=== PATIENT | female | born 1945 | race Caucasian/White ===

== ENCOUNTER 2019-09-24 09:11 | Inpatient (IN) | payer OTHER ==
[~2019-09-24] VITALS: Ht 162.6 cm; Wt 98.6 kg
[2019-09-24 09:11] VITALS: BP_SYST 114
--- NOTE | 2019-09-24 09:11 | NUR ---
BROUGHT BACK TO BED #6 VIA WHEELCHAIR, TRIAGED. REPORT GIVEN TO LUIS
--- NOTE | 2019-09-24 09:20 | NUR ---
pt arrives from home via BLS w/ c/o SOB since this am. pt was recently dc'd from [facility] where she was told that hse had a "minor heart attack. Pt placed on 2l NC. Will reassess.
--- NOTE | 2019-09-24 09:20 | NUR ---
pt arrives from home via WC w/ c/o SOB since this am. pt was recently dc'd from [facility] where she was told that hse had a "minor heart attack. Pt placed on 2l NC. Will reassess.
--- NOTE | 2019-09-24 09:30 | NUR ---
# 20 gauge angiocath placed to LAC. Use of asceptic technique. Opsite placed over site. Blood return noted. Blood for lab drawn from site. Flushed with 10 cc of normal saline. No evidence of infiltration noted. Patient tolerated well.
--- NOTE | 2019-09-24 09:32 | NUR ---
ER at bedside examining patient.
--- NOTE | 2019-09-24 09:40 | NUR ---
pt is currrently getting a CXR at the bedside.
[2019-09-24 09:52] LABS: BASOPHILS # (AUTO) 0.1 K/uL (0.0-0.2); BASOPHILS % (AUTO) 0.9 % (0.0-2.0); EOSINOPHILS # (AUTO) 0.1 K/uL (0.0-0.4); EOSINOPHILS % (AUTO) 0.9 % (0.0-4.0); HEMATOCRIT 40.2 % (36-48); HEMOGLOBIN 13.1 g/dL (12.0-16.0); LYMPHOCYTES # (AUTO) 1.3 K/uL (1.0-5.5); LYMPHOCYTES % (AUTO) 14.2 % (20.5-51.5); MEAN CORPUSCULAR HEMOGLOBIN 28 pg (27-31); MEAN CORPUSCULAR HGB CONC 33 % (32-36); MEAN CORPUSCULAR VOLUME 88 fL (79.0-98.0); MONOCYTES # (AUTO) 0.6 K/uL (0.0-1.0); MONOCYTES % (AUTO) 6.5 % (1.7-9.3); NEUTROPHILS # (AUTO) 7.3 K/uL (1.8-7.7); NEUTROPHILS % (AUTO) 77.5 % (40.0-70.0); PLATELET COUNT (AUTO) 357 K/uL (130-430); RED CELL DISTRIBUTION WIDTH 14.8 % (9.0-15.0); WHITE BLOOD COUNT (AUTO) 9.4 K/uL (4.8-10.8)
[2019-09-24] MEDS ORDERED: LevALBUTEROL HCL 1.25 MG/0.5 ML *CONC.* VIAL.NEB (XOPENEX CONC.) INH ONE ×2 (09:59→10:00)
[2019-09-24 10:01] LABS: ANION GAP 8 (5-15); CALCIUM 8.4 mg/dL (8.4-11.0); CHLORIDE 102 mmol/L (98-107); CREATININE 1.05 mg/dL (0.55-1.30); GLUCOSE 135 mg/dL (70-99); POTASSIUM 3.4 mmol/L (3.5-5.1); SODIUM SERUM 138 mmol/L (136-145); UREA NITROGEN, BLOOD 10 mg/dL (8-21)
[2019-09-24 10:14] LABS: ALANINE AMINOTRANSFERASE 24 U/L (12-78); ASPARTATE AMINOTRANSFERASE 7 U/L (10-37); TOTAL BILIRUBIN 0.9 mg/dL (0.0-1.0)
[2019-09-24] MEDS ORDERED: FUROSEMIDE 40 MG/4 ML VIAL IVP ONE (11:00)
[2019-09-24] MEDS ORDERED: ASPIRIN 81 MG TAB.CHEW PO ONE (11:00)
--- NOTE | 2019-09-24 11:00 | NUR ---
pt will be admitted under the care of Dr. Bradley. Orders received.
--- NOTE | 2019-09-24 11:10 | NUR ---
medicated the pt w/ LAsix IVP and Aspirin PO per MD order.
--- NOTE | 2019-09-24 11:22 | NUR ---
unable to do med rec. Pt does not know w/ medications she is on. Daughter to bring home.
--- NOTE | 2019-09-24 11:30 | NUR ---
Patient will be admitted to care of Dr. Bradley. Admitted to tele unit. Will go to room 101-a. Belongings list completed. Summary report printed. Bedside report given to Gillian KING. IV on the LAC 22g, patent and flushing well.
--- NOTE | 2019-09-24 11:35 | NUR ---
Cardiac consult called: for Dr. Gaitan, regarding CHF, ordered by Dr. Bradley, spoke with Mila.
--- NOTE | 2019-09-24 11:40 | NUR ---
ADMISSION NOTE Received patient from ER via gurney. Patient admitted with diagnosis of SOB. Patient is awake, alert, oriented X 3. Patient oriented to hospital room, call light, toileting, pain management and safety-teach back done. Patient informed that HAIDER will be HER nurse and that their room number is 101A. Personal belongings checked and Belongings List documented. Call light within reach.
[2019-09-24] MEDS ORDERED: ALBUTEROL SULFATE 0.083% 2.5 MG/3 ML VIAL.NEB INH PRN (11:45)
[2019-09-24] MEDS ORDERED: IPRATROPIUM BROM 0.5 MG/2.5 ML VIAL.NEB (ATROVENT) INH PRN (11:45)
[2019-09-24] MEDS ORDERED: AZITHROMYCIN 500 MG in NS 250 ML IV SCH (12:00)
--- NOTE | 2019-09-24 12:15 | NUR ---
INITIAL ASSESSMENT: PATIENT HAVING ECHOCARDIOGRAM AT THE BEDSIDE. VITAL SIGNS TAKEN,AFEBRILE. PATIENT DENIES ANY CHEST PAIN.LEFT AC IV SALINE LOCK.ON FIELD CASE MANAGER. SINUS RHYTHM WITH PVC'S.ASYMPTOMATIC. Addendum: 09/24/19 at 1443 by Shawna Ling RN WITH O2 2L/NC,GOOD SATURATION.
[2019-09-24 12:20] VITALS: BP_SYST 93
[2019-09-24 12:48] VITALS: BP_SYST 93
[2019-09-24] MEDS: ALBUTEROL SULFATE 0.083% 2.5 MG/3 ML VIAL.NEB INH SCH ×2 (13:37→19:30)
[2019-09-24] MEDS: IPRATROPIUM BROM 0.5 MG/2.5 ML VIAL.NEB (ATROVENT) INH SCH ×2 (13:37→19:29)
[2019-09-24] MEDS ORDERED: methylPREDNISolone SOD SUCC/PF 62.5 MG/ML VIAL IVP SCH (14:00)
[2019-09-24 14:06] VITALS: BP_SYST 93
[2019-09-24] MEDS: cefTRIAXone 1 GM in D5W 50 ML IV SCH (14:27)
[2019-09-24] MEDS: AZITHROMYCIN 500 MG in NS 250 ML IV SCH (14:28)
--- NOTE | 2019-09-24 14:40 | NUR ---
RN ROUNDS: PATIENT SLEEPING DURING ROUNDS. NOT IN ANY RESPIRATORY DISTRESS.
--- NOTE | 2019-09-24 16:14 | NUR ---
RN ROUNDS: RESTING. DENIES ANY CHEST PAIN. NO ACUTE DISTRESS.
[2019-09-24 16:36] VITALS: BP_SYST 90
--- NOTE | 2019-09-24 17:15 | NUR ---
IV NOTES: PATIENT PULLED OUT IV BY ACCIDENT. RE SITED AT LEFT HAND USING G#22,IV ANTIBIOTIC GIVEN.NO PROBLEM.
--- NOTE | 2019-09-24 17:33 | NUR ---
pulmo consult called: for Dr. Newton, regarding COPD, ordered by Dr. Bradley, spoke with Naomie. Dr. Mandujano documentation spec.
[2019-09-24 17:41] LABS: INR 1.1 (0.8-1.2); PROTHROMBIN TIME 11.1 SECS (9.5-12.5)
[2019-09-24] MEDS ORDERED: WARFARIN SODIUM 1 MG TABLET PO SCH (18:00)
--- NOTE | 2019-09-24 18:33 | NUR ---
CLOSING NOTES: PATIENT ON HIGH ZENG'S POSITION.DAUGHTER AT THE BEDSIDE. ON O2 2L/NC,GOOD SATURATION. NO ACUTE DISTRESS. CALL LIGHT WITH IN REACH. BED LOCKED AT LOWEST POSITION. CONDITION GUARDED.
--- NOTE | 2019-09-24 19:35 | NUR ---
OPENING NOTES Patient is resting, HOB elevated, family at bedside. No signs of acute respiratory distress, 2L NC. Call light within reach, bed alarm refused after educating patient on risks and benefits and patient verbalizes understanding. Will continue to monitor.
--- NOTE | 2019-09-24 19:44 | NUR ---
SPOKE TO DR. HOPSON, RECEIVED NEW ORDERS FOR RESTORIL 15 MG PO ONE TIME, Will hold Lasix per Dr. Hopson for low Blood pressure and hold Coreg if still in 90's BP.
--- NOTE | 2019-09-24 19:47 | NUR ---
PAGE PAGED DOCTOR HOPSON FOR ORDERS.
[2019-09-24 20:00] VITALS: BP_SYST 104
[2019-09-24] MEDS ORDERED: TEMAZEPAM 15 MG CAPSULE PO ONE (20:00)
--- NOTE | 2019-09-24 20:14 | NUR ---
Patient is resting, no signs of acute respiratory distress, 2L NC. Will continue to monitor.
[2019-09-24] MEDS: CARVEDILOL 6.25 MG TABLET (COREG) PO SCH (21:00)
[2019-09-24] MEDS: FUROSEMIDE 40 MG/4 ML VIAL IVP SCH (21:00)
[2019-09-24] MEDS ORDERED: FUROSEMIDE 40 MG/4 ML VIAL IVP SCH (21:00)
--- NOTE | 2019-09-24 22:10 | NUR ---
Provided patient with restoril. Educated patient on possible side effects and use of call light. Patient verbalized understanding. Safety precautions in place along with bed alarm. Will continue to monitor.
--- NOTE | 2019-09-25 00:14 | NUR ---
Assisted patient with blankets. No signs of acute respiratory distress. 2L NC. Will continue to monitor.
[2019-09-25 00:33] VITALS: BP_SYST 119
[2019-09-25] MEDS: ALBUTEROL SULFATE 0.083% 2.5 MG/3 ML VIAL.NEB INH SCH ×4 (01:00→15:00)
[2019-09-25] MEDS: IPRATROPIUM BROM 0.5 MG/2.5 ML VIAL.NEB (ATROVENT) INH SCH ×4 (01:00→15:00)
--- NOTE | 2019-09-25 02:13 | NUR ---
Patient is asleep, no change in condition. Will continue to monitor.
--- NOTE | 2019-09-25 04:15 | NUR ---
Patient is resting, eyes closed. No SOB observed. Safety precautions in place. Will continue to monitor.
[2019-09-25 06:07] LABS: INR 1.1 (0.8-1.2); PROTHROMBIN TIME 11.2 SECS (9.5-12.5)
[2019-09-25 06:40] LABS: BASOPHILS % (AUTO) 0.1 % (0.0-2.0); HEMATOCRIT 34.9 % (36-48); HEMOGLOBIN 11.7 g/dL (12.0-16.0); LYMPHOCYTES # (AUTO) 0.7 K/uL (1.0-5.5); LYMPHOCYTES % (AUTO) 9.9 % (20.5-51.5); MEAN CORPUSCULAR HEMOGLOBIN 29 pg (27-31); MEAN CORPUSCULAR HGB CONC 33 % (32-36); MEAN CORPUSCULAR VOLUME 87 fL (79.0-98.0); MONOCYTES # (AUTO) 0.1 K/uL (0.0-1.0); MONOCYTES % (AUTO) 1.7 % (1.7-9.3); NEUTROPHILS # (AUTO) 6.5 K/uL (1.8-7.7); NEUTROPHILS % (AUTO) 88.3 % (40.0-70.0); PLATELET COUNT (AUTO) 306 K/uL (130-430); RED BLOOD CELL COUNT(AUTO) 4.04 MIL/uL (4.2-6.2); RED CELL DISTRIBUTION WIDTH 14.4 % (9.0-15.0); WHITE BLOOD COUNT (AUTO) 7.4 K/uL (4.8-10.8)
--- NOTE | 2019-09-25 06:54 | NUR ---
CLOSING NOTES Patient is resting, eyes closed. No signs of acute respiratory distress, 2L NC. HOB elevated. Patient refused bed alarm after patient education provided and patient verbalizes understanding. All needs met throughout shift. Bed at lowest position, call light within reach. Will endorse care to oncoming shift.
[2019-09-25 07:05] LABS: ALANINE AMINOTRANSFERASE 10 U/L (12-78); ALBUMIN 2.5 g/dL (3.4-4.8); ANION GAP 8 (5-15); ASPARTATE AMINOTRANSFERASE 15 U/L (10-37); CALCIUM 8.3 mg/dL (8.4-11.0); CHLORIDE 100 mmol/L (98-107); GLUCOSE 157 mg/dL (70-99); POTASSIUM 3.8 mmol/L (3.5-5.1); SODIUM SERUM 134 mmol/L (136-145); THYROID STIMULATING HORMONE 3.23 uIu/mL (0.36-3.74); TOTAL BILIRUBIN 0.3 mg/dL (0.0-1.0); UREA NITROGEN, BLOOD 14 mg/dL (8-21)
[2019-09-25 07:49] VITALS: BP_SYST 125
--- NOTE | 2019-09-25 08:00 | NUR ---
Note Pt sitting up in bed eating her breakfast, no SOB/resp distress or pain/discomfort noted at this time. Tele unit attached and intact at this time. IV in left hand fallen off. New IV to be inserted at this time. No needs noted. Pt had her breathing treatment and now has O2 at 2l/nc on. Call light within reach.
[2019-09-25] MEDS: ASPIRIN 81 MG TAB.CHEW PO SCH (08:30)
[2019-09-25] MEDS: FLUoxetine HCL 10 MG CAPSULE (PROzac) PO SCH (08:30)
[2019-09-25] MEDS: SPIRONOLACTONE 25 MG TABLET (ALDACTONE) PO SCH (08:31)
[2019-09-25] MEDS: ATORVASTATIN 20 MG TABLET PO SCH (08:31)
[2019-09-25] MEDS: CLOPIDOGREL BISULFATE 75 MG TABLET PO SCH (08:31)
[2019-09-25] MEDS: AMIODARONE HCL 200 MG TABLET PO SCH (08:31)
[2019-09-25] MEDS: FUROSEMIDE 40 MG/4 ML VIAL IVP SCH ×2 (08:32→20:34)
[2019-09-25] MEDS: CARVEDILOL 6.25 MG TABLET (COREG) PO SCH ×2 (08:38→20:34)
[2019-09-25] MEDS ORDERED: WARFARIN SODIUM 3 MG TABLET PO ONE (08:45)
[2019-09-25] MEDS ORDERED: *LOVENOX 1MG/KG Q12H/PHARMACY XX PRN (09:30)
[2019-09-25] MEDS ORDERED: ENOXAPARIN SODIUM 100 MG/ML SYRINGE SUBCUT ONE (09:30)
--- NOTE | 2019-09-25 09:58 | NUR ---
Nutrition Update Ten Scale 18 noted. Pt admitted for CHF. Diet: cardiac BMI: 37.7 kg/m2 RD to follow per nutrition care standards.
--- NOTE | 2019-09-25 10:35 | NUR ---
Note Pt sitting up in bed resting. No SOB/resp distress or pain/discomfort noted at this time. Pt was seen and assessed by Dr Gaitan at bedside this am at 0915am. Orders written and carried out. Pt states she feels a lot better and rested than she has felt the last few months. She slept well last night, the first time in a very long time. No needs noted at this time. Call light within reach.
--- NOTE | 2019-09-25 12:08 | NUR ---
Dietitian Recommendations * Recommend cardiac, CCHO diet w/ Glucerna BID (ONS provides 440 kcal/day, 20 gm protein/day) * Snacks TID in-between meals LP, RD Please refer to Nutrition Assessment for details. Addendum: 09/25/19 at [address] Amended: Links added.
[2019-09-25] MEDS: cefTRIAXone 1 GM in D5W 50 ML IV SCH (12:11)
[2019-09-25 12:12] VITALS: BP_SYST 97
--- NOTE | 2019-09-25 12:30 | NUR ---
Note Pt sitting up in bed eating her lunch at this time. Denies any needs. Call light within reach.
[2019-09-25] MEDS: AZITHROMYCIN 500 MG in NS 250 ML IV SCH (13:12)
[2019-09-25 13:50] LABS: CHOLESTEROL 88 mg/dL (<200); HDL CHOLESTEROL 45 mg/dL (>55); LDL CHOLESTEROL 31 mg/dL (<100); TRIGLYCERIDES 78 mg/dL (30-150)
--- NOTE | 2019-09-25 16:00 | NUR ---
Note Pt ambulated to restroom to have bowel movement. Pt steady with standby assist at this time. No chest discomfort/pain noted all shift. No needs noted at this time. Call light within reach.
[2019-09-25 16:20] VITALS: BP_SYST 105
--- NOTE | 2019-09-25 18:15 | NUR ---
Note Pt sitting up in bed eating her dinner at this time. Pt was checked on q1' and PRN all shift for needs and care. No SOB/resp distress or chest pain/discomfort noted all shift. Tele unit intact and attached all shift. No needs noted. Pt has had BSC all shift - only used it occasionally. Ambulated to restroom - pt's preference. Call light within reach. Pt maintained with safety precautions all shift.
--- NOTE | 2019-09-25 19:20 | NUR ---
PM ASSESSMENT Pt in bed with eyes open resting comfortably. No signs of acute distress or discomfort noted. Pt on 2L O2 via NC, tolerating well with O2 sats @ 96% and even and unlabored breathing. Pt IV site patent and intact. Pt doesn't verbalize any needs at this time. Bed is locked and in lowest position, call light within reach, will cont to monitor pt.
[2019-09-25 20:00] VITALS: BP_SYST 118
[2019-09-25] MEDS: ENOXAPARIN SODIUM 100 MG/ML SYRINGE SUBCUT SCH (20:36)
--- NOTE | 2019-09-25 22:30 | NUR ---
Pt c/o headache at this time. Will page MD for orders. Will cont to monitor pt.
--- NOTE | 2019-09-25 22:43 | NUR ---
PAGE PAGED DOCTOR CROKCER
--- NOTE | 2019-09-25 23:07 | NUR ---
PAGED PAGED THE OPTICAL ENGINEERING MANAGER PHYSICIAN DR. CROCKER, SPOKE WITH ANA
--- NOTE | 2019-09-25 23:30 | NUR ---
PAGED PAGED DOCTOR CROCKER FOR 3RD TIME
[2019-09-26] VITALS: BP_SYST 116
--- NOTE | 2019-09-26 00:28 | NUR ---
Pt states that she is having a hard time breathing. Pt's v/s checked and let pt know that her oxygen saturation is 98% at this time. Pt states she would still like a breathing treatment. RT made aware and will administer breathing tx. Will cont to monitor pt.
--- NOTE | 2019-09-26 00:38 | NUR ---
4TH TIME PAGED DOCTOR CROCKER FOR ORDERS
--- NOTE | 2019-09-26 00:46 | NUR ---
MD MD Dr. Gregory called back and new orders received. Will carry out orders.
[2019-09-26] MEDS ORDERED: ACETAMINOPHEN 325 MG TABLET PO PRN (01:15)
[2019-09-26] MEDS: TEMAZEPAM 15 MG CAPSULE PO PRN ×2 (01:22→20:59)
[2019-09-26 04:00] VITALS: BP_SYST 123
--- NOTE | 2019-09-26 04:05 | NUR ---
Pt in bed with eyes closed resting comfortably. No signs of acute distress or discomfort noted. Bed is locked and in lowest position, call light within reach, will cont to monitor pt.
--- NOTE | 2019-09-26 05:54 | NUR ---
Pt resting in bed with eyes closed. No signs of acute distress or discomfort noted. Pt's daily weight checked at this time. Bed is locked and in lowest position, call light within reach, will cont to monitor.
[2019-09-26 07:18] LABS: BASOPHILS % (AUTO) 0.3 % (0.0-2.0); EOSINOPHILS % (AUTO) 0.2 % (0.0-4.0); HEMATOCRIT 36.1 % (36-48); HEMOGLOBIN 11.7 g/dL (12.0-16.0); LYMPHOCYTES % (AUTO) 14.7 % (20.5-51.5); MEAN CORPUSCULAR HEMOGLOBIN 28 pg (27-31); MEAN CORPUSCULAR HGB CONC 32 % (32-36); MEAN CORPUSCULAR VOLUME 87 fL (79.0-98.0); MONOCYTES # (AUTO) 0.7 K/uL (0.0-1.0); MONOCYTES % (AUTO) 5.6 % (1.7-9.3); NEUTROPHILS # (AUTO) 10.5 K/uL (1.8-7.7); PLATELET COUNT (AUTO) 311 K/uL (130-430); RED BLOOD CELL COUNT(AUTO) 4.14 MIL/uL (4.2-6.2); RED CELL DISTRIBUTION WIDTH 14.5 % (9.0-15.0); WHITE BLOOD COUNT (AUTO) 13.3 K/uL (4.8-10.8)
[2019-09-26 07:31] LABS: ALANINE AMINOTRANSFERASE 15 U/L (12-78); ALBUMIN 2.8 g/dL (3.4-4.8); ANION GAP 6 (5-15); ASPARTATE AMINOTRANSFERASE 12 U/L (10-37); CALCIUM 8.4 mg/dL (8.4-11.0); CHLORIDE 99 mmol/L (98-107); CREATININE 0.94 mg/dL (0.55-1.30); GLUCOSE 129 mg/dL (70-99); POTASSIUM 3.8 mmol/L (3.5-5.1); SODIUM SERUM 134 mmol/L (136-145); TOTAL BILIRUBIN 0.5 mg/dL (0.0-1.0); UREA NITROGEN, BLOOD 18 mg/dL (8-21)
--- NOTE | 2019-09-26 07:35 | NUR ---
ENDORSEMENT Report given to oncoming dayshift RN and pt care was endorsed. No signs of acute distress or discomfort noted.
[2019-09-26 08:00] VITALS: BP_SYST 109
--- NOTE | 2019-09-26 08:30 | NUR ---
RN INITIAL NOTES RECEIVED PATIENT IN BED ALERT X 4 NO DISTRESS RESP EVEN AND UNLABORED NO COMPLAIN OF PAIN AT THIS TIME PATIENT SAID SHE WANTS TO GO HOME IF THE DR COMES TO SEE HER , AM MEDS GIVEN HELD BP MEDS AND LASIX PATIENT HAS LOW BP READING, BP 109/54 98.6, 80, 18 97 %
[2019-09-26] MEDS: IPRATROPIUM BROM 0.5 MG/2.5 ML VIAL.NEB (ATROVENT) INH SCH ×3 (08:35→21:00)
[2019-09-26] MEDS: ALBUTEROL SULFATE 0.083% 2.5 MG/3 ML VIAL.NEB INH SCH ×3 (08:35→21:00)
[2019-09-26] MEDS: ATORVASTATIN 20 MG TABLET PO SCH (08:52)
[2019-09-26] MEDS: ASPIRIN 81 MG TAB.CHEW PO SCH (08:52)
[2019-09-26] MEDS: CLOPIDOGREL BISULFATE 75 MG TABLET PO SCH (08:52)
[2019-09-26] MEDS: AMIODARONE HCL 200 MG TABLET PO SCH (08:53)
[2019-09-26] MEDS: CARVEDILOL 6.25 MG TABLET (COREG) PO SCH ×2 (08:53→20:58)
[2019-09-26] MEDS: FLUoxetine HCL 10 MG CAPSULE (PROzac) PO SCH (08:59)
[2019-09-26] MEDS: SPIRONOLACTONE 25 MG TABLET (ALDACTONE) PO SCH (09:00)
[2019-09-26] MEDS: FUROSEMIDE 40 MG/4 ML VIAL IVP SCH ×2 (09:00→20:59)
[2019-09-26] MEDS: ENOXAPARIN SODIUM 100 MG/ML SYRINGE SUBCUT SCH ×2 (09:03→21:01)
[2019-09-26 09:38] LABS: INR 1.2 (0.8-1.2); PROTHROMBIN TIME 12.4 SECS (9.5-12.5)
--- NOTE | 2019-09-26 10:00 | NUR ---
DR CROCKER ROUNDS SET OFF PRESS OPERATOR FOR DR HOPSON PATIENT SEEN BY DR CROCKER DISCUSSED PLAN OF CARE AND PATIENT WILL HAVE LABS IN AM NO DC ORDER FOR TODAY
[2019-09-26 11:34] LABS: NEUTROPHILS % (AUTO) 79.2 % (40.0-70.0)
--- NOTE | 2019-09-26 12:00 | NUR ---
ROUNDS PATIENT VERBAL NO DISTRESS WATCHING TV NO COMPLAIN OF PAIN
[2019-09-26 12:37] VITALS: BP_SYST 106
[2019-09-26] MEDS: AZITHROMYCIN 500 MG in NS 250 ML IV SCH (15:08)
[2019-09-26] MEDS: cefTRIAXone 1 GM in D5W 50 ML IV SCH (15:52)
[2019-09-26 16:44] VITALS: BP_SYST 98
[2019-09-26] MEDS: WARFARIN SODIUM 4 MG TABLET PO SCH (18:46)
--- NOTE | 2019-09-26 18:59 | NUR ---
ENDORSEMENT WILL CONT PLAN OF CARE COUMADIN GIVEN NO COMPLAIN OF DISTRESS AND NO PAIN SAFETY ENSURED
[2019-09-26 20:00] VITALS: BP_SYST 109
--- NOTE | 2019-09-26 20:00 | NUR ---
AWAKE, ALERT, ORIENTED X3. IN NO APPARENT DISTRESS. VSS. DENIES PAIN. ON ROOM AIR. POX 95%. BREATH SOUNDS CLEAR. BOWEL SOUNDS (+). PULSES PALPABLE. SKIN W/D. COLOR SATISFACTORY. HOB UP TO COMFORT. SIDE RAILS UP. CALL. LIGHTS WITHIN REACH.
--- NOTE | 2019-09-26 21:00 | NUR ---
RESTORIL 15 MG PO GIVEN PER PT REQUEST FOR SLEEP.
[2019-09-27 00:05] VITALS: BP_SYST 109
--- NOTE | 2019-09-27 00:15 | NUR ---
TRANSFER OF CARE Received report from CHRISTINE Mao. Patient receive asleep, no signs of respiratory distress, and discomfort noted. BSC in place. Safety Precautions in place. Will continue to monitor.
--- NOTE | 2019-09-27 02:00 | NUR ---
RN ROUNDS Patient is asleep, no signs of respiratory distress and discomfort noted. Nasal cannula properly attached. Safety precautions in place. Will continue to monitor.
--- NOTE | 2019-09-27 03:48 | NUR ---
ROUNDS/REQUEST BREATHING TREATMENT Patient awake, alert and oriented. Requested for breathing treatment. RT made aware. Nasal cannula attached properly, no signs of respiratory distress and discomfort noted. HOB raised. Call light with patient, educated on proper use, patient verbalized understanding and demonstrated back proper use. Safety precautions in place. Will continue to monitor.
--- NOTE | 2019-09-27 05:28 | NUR ---
RN ROUNDS Patient asleep at this time. Breathing even and unlabored, no signs of respiratory distress and discomfort noted. Nasal cannula attached properly. HOB raised. Safety precautions in place. Will continue to monitor.
[2019-09-27 06:05] LABS: BASOPHILS % (AUTO) 0.4 % (0.0-2.0); EOSINOPHILS # (AUTO) 0.1 K/uL (0.0-0.4); EOSINOPHILS % (AUTO) 1.4 % (0.0-4.0); HEMATOCRIT 33.3 % (36-48); LYMPHOCYTES # (AUTO) 2.4 K/uL (1.0-5.5); LYMPHOCYTES % (AUTO) 28.3 % (20.5-51.5); MEAN CORPUSCULAR HEMOGLOBIN 29 pg (27-31); MEAN CORPUSCULAR HGB CONC 33 % (32-36); MEAN CORPUSCULAR VOLUME 87 fL (79.0-98.0); MONOCYTES # (AUTO) 0.6 K/uL (0.0-1.0); MONOCYTES % (AUTO) 6.8 % (1.7-9.3); NEUTROPHILS # (AUTO) 5.3 K/uL (1.8-7.7); NEUTROPHILS % (AUTO) 63.1 % (40.0-70.0); PLATELET COUNT (AUTO) 279 K/uL (130-430); RED BLOOD CELL COUNT(AUTO) 3.84 MIL/uL (4.2-6.2); RED CELL DISTRIBUTION WIDTH 14.7 % (9.0-15.0); WHITE BLOOD COUNT (AUTO) 8.4 K/uL (4.8-10.8)
[2019-09-27 06:23] LABS: ALANINE AMINOTRANSFERASE 16 U/L (12-78); ALBUMIN 2.5 g/dL (3.4-4.8); ANION GAP 5 (5-15); ASPARTATE AMINOTRANSFERASE 13 U/L (10-37); CALCIUM 7.9 mg/dL (8.4-11.0); CHLORIDE 98 mmol/L (98-107); CREATININE 0.89 mg/dL (0.55-1.30); GLUCOSE 105 mg/dL (70-99); POTASSIUM 3.4 mmol/L (3.5-5.1); SODIUM SERUM 133 mmol/L (136-145); TOTAL BILIRUBIN 0.4 mg/dL (0.0-1.0); UREA NITROGEN, BLOOD 16 mg/dL (8-21)
--- NOTE | 2019-09-27 06:25 | NUR ---
CLOSING NOTES Patient asleep at this time, breathing even and unlabored, no signs of respiratory distress. IV site patent, no signs of infection. Nasal cannula attached properly on 2L of oxygen. HOB raised. Bed alarm on. Bed locked and lowest position. All needs met throughout the shift. Will endorse to oncoming nurse for continuity of care. Will continue to monitor.
[2019-09-27] MEDS: IPRATROPIUM BROM 0.5 MG/2.5 ML VIAL.NEB (ATROVENT) INH SCH ×3 (07:00→20:01)
[2019-09-27] MEDS: ALBUTEROL SULFATE 0.083% 2.5 MG/3 ML VIAL.NEB INH SCH ×3 (07:00→20:01)
[2019-09-27] MEDS ORDERED: POTASSIUM CHLORIDE 20 MEQ TAB.PRT.SR PO ONE (07:15)
--- NOTE | 2019-09-27 08:00 | NUR ---
INITIAL RN NOTES RECEIVED PATIENT IN BED NOT IN ANY DISTRESS,RESP EVEN AND UNLABORED, NO FACIAL GRIMACE NOTED, PATIENT CONT WITH PLAN OF CARE , PATIENT WAS SEEN BY DR. CROCKER WITH ORDERS FOR LAB DRAW TODAY AND WILL CALL MD FOR RESULT.SAFETY ENSURED
[2019-09-27 08:03] LABS: INR 1.2 (0.8-1.2); PROTHROMBIN TIME 11.9 SECS (9.5-12.5)
[2019-09-27 08:30] VITALS: BP_SYST 90
[2019-09-27] MEDS: FUROSEMIDE 40 MG/4 ML VIAL IVP SCH ×2 (08:40→21:17)
[2019-09-27] MEDS: SPIRONOLACTONE 25 MG TABLET (ALDACTONE) PO SCH (08:41)
[2019-09-27] MEDS: CARVEDILOL 6.25 MG TABLET (COREG) PO SCH ×2 (08:41→21:19)
[2019-09-27] MEDS: AMIODARONE HCL 200 MG TABLET PO SCH (08:43)
[2019-09-27] MEDS: FLUoxetine HCL 10 MG CAPSULE (PROzac) PO SCH (08:46)
[2019-09-27] MEDS: CLOPIDOGREL BISULFATE 75 MG TABLET PO SCH (08:46)
[2019-09-27] MEDS: ASPIRIN 81 MG TAB.CHEW PO SCH (08:46)
[2019-09-27] MEDS: ATORVASTATIN 20 MG TABLET PO SCH (08:46)
[2019-09-27] MEDS: ENOXAPARIN SODIUM 100 MG/ML SYRINGE SUBCUT SCH ×2 (08:47→21:20)
--- NOTE | 2019-09-27 10:00 | NUR ---
ROUNDS PATIENT WOKE UP AND STATED SHE WAS TOLD YESTERDAY FOR DC TODAY BUT WAS TOLD NOT TO DC TODAY , INFORMED PATIENT LAB DRAW TODAY FOR PT . AND WILL WAIT FOR DR ADDISON TODAY ,D/T TO HER PT STILL NOT THERAPEUTIC
[2019-09-27 10:13] VITALS: BP_SYST 109
--- NOTE | 2019-09-27 11:51 | NUR ---
DR ADDISON VISIT PATIENT SEEN BY DR ADDISON EXPLAINED TO THE PATIENT HER PT STILL NOT THERAPEUTIC WILL GIVE COUMADIN AGAIN TODAY
[2019-09-27] MEDS ORDERED: METOLAZONE 5 MG TABLET PO ONE (12:00)
[2019-09-27] MEDS ORDERED: POTASSIUM CHLORIDE 20 MEQ/PKT PACKET PO ONE (12:00)
[2019-09-27 12:20] VITALS: BP_SYST 98
--- NOTE | 2019-09-27 12:35 | NUR ---
POTASSIUM DR ELIZALDE INFORMED THAT THIS AM DR CROCKER ORDERED FOR POTASSIUM AND MISSED THE TIME DR ADDISON SAID ITS OK TO GIVE THE NEXT DOSE ORDERED BY HIM AFTER 2PM INFORMED PATIENT
--- NOTE | 2019-09-27 14:00 | NUR ---
ROUNDS PATIENT SLEEPING AT THIS TIME WATCHING TV AND CONVERSANT NO C/O OF PAIN
[2019-09-27 16:00] VITALS: BP_SYST 111
--- NOTE | 2019-09-27 16:00 | NUR ---
PATIENT BREATHING TREATMENT PATIENT OFFERED FOR BREATHING TREATMENT 02 SAT 98% PATIENT STATED SHES ANXIOUS TO GO HOME WILL FOLLOW UP IN AM WILL CONT WITH IV ATB
[2019-09-27] MEDS: AZITHROMYCIN 500 MG in NS 250 ML IV SCH (16:45)
[2019-09-27] MEDS: cefTRIAXone 1 GM in D5W 50 ML IV SCH (16:50)
[2019-09-27] MEDS: WARFARIN SODIUM 4 MG TABLET PO SCH (18:06)
--- NOTE | 2019-09-27 18:30 | NUR ---
Paged Dr. Gregory s/w Any.
--- NOTE | 2019-09-27 18:32 | NUR ---
END RN NOTES PATIENT STATED THAT SHE FELT NAUSEATED AND DONT FEEL LIKE EATING OFFERED ICE CHIPS PATIENT SAID I DONT WANT TO EAT ANYTHING FOR NOW , CALLED DR CROCKER FOR THE NAUSEA INFORMED PATIENT TO ASSUME POSITION THAT WILL MAKE HER COMFORTABLE O2 SAT IS 98% BP 111/72, AWAITING FOR DR CROCKER RETURN CALL
--- NOTE | 2019-09-27 20:00 | NUR ---
INITIAL NOTES: PT IS ALERT AND ORIENTED , NOT IN ANY ACUTE DISTRESS; VITALS ARE STABLE ; ON O2 2L NC SAT 96 % ; ASSESSMENT DONE ; DENIED ANY SOB OR CHEST DISCOMFORT AT THIS TIME ; PT USES BSC , ENCOURAGED PT TO CALL FOR ASSIST ; PT REFUSED BED ALARM ; BED IN LOW AND LOCK POSITION , CALL HARKINS IN REACH ; WILL CONTINUE TO MONITOR PT ; TELE MONITOR SHOWING SR WITH [facility]
[2019-09-27 21:10] VITALS: BP_SYST 109
--- NOTE | 2019-09-27 21:20 | NUR ---
MEDICATION DUE MEDS GIVEN ; PT IS COMFORTABLE ; WILL CONTINUE TO MONITOR PT Addendum: 09/28/19 at 0121 by Orlin Diaz RN EDUCATED PT ON LASIX WITH MEDICATION FACT SHEET , NO QUESTIONS AT THIS TIME
[2019-09-27] MEDS: TEMAZEPAM 15 MG CAPSULE PO PRN (23:01)
--- NOTE | 2019-09-27 23:05 | NUR ---
RESTORIL: PT CALLED AND ASKED FOR SLEEPING PILL , MEDICATED PT WITH RESTORIL PER ORDER , EDUCATED PT THE NEED FOR BED ALARM , PT REFUSED AT THIS TIME ; ENCOURAGED PT TO CALL FOR ASSIST .
[2019-09-28] VITALS: BP_SYST 93
--- NOTE | 2019-09-28 01:23 | NUR ---
RN ROUNDS: PT IS SLEEPING COMFORTABLY , NOT IN ANY ACUTE DISTRESS; RESPIRATION IS EVEN AND NON LABORED ; WILL CONTINUE TO MONITOR PT .
--- NOTE | 2019-09-28 03:40 | NUR ---
RN ROUNDS: PT IS SLEEPING COMFORTABLY , NOT IN ANY ACUTE DISTRESS; RESPIRATION IS EVEN AND NON LABORED ; WILL CONTINUE TO MONITOR PT .
--- NOTE | 2019-09-28 05:21 | NUR ---
RN ROUNDS: PT IS SLEEPING COMFORTABLY , NOT IN ANY ACUTE DISTRESS; RESPIRATION IS EVEN AND NON LABORED ; WILL CONTINUE TO MONITOR PT .
--- NOTE | 2019-09-28 07:20 | NUR ---
CLOSING NOTES: REPORT GIVEN TO RN AT BEDSIDE ; PT IS STILL SLEEPING , EASILY AROUSABLE ; ALL NEEDS ATTENDED .
[2019-09-28] MEDS: ALBUTEROL SULFATE 0.083% 2.5 MG/3 ML VIAL.NEB INH SCH (07:25)
[2019-09-28] MEDS: IPRATROPIUM BROM 0.5 MG/2.5 ML VIAL.NEB (ATROVENT) INH SCH (07:25)
[2019-09-28 08:00] VITALS: BP_SYST 98
--- NOTE | 2019-09-28 08:05 | NUR ---
INITIAL NOTE: RECEIVED PT FROM LANDSCAPE ENGINEER NURSE. PT IS AWAKE LAYING IN BED EATING BREAKFAST. PT TOLERATING CURRENT DIET. PT ON 1L NC, NO DISTRESS NOTED, RISE AND FALL OF CHEST PRESENT. NO C/O PAIN AT THIS TIME. SAFETY PRECAUTIONS: BED LOCKED IN LOWEST POSITION, ALARM ON, CALL LIGHT WITHIN REACH. WILL CONTINUE PLAN OF CARE.
[2019-09-28 08:06] LABS: INR 1.4 (0.8-1.2); PROTHROMBIN TIME 14.3 SECS (9.5-12.5)
[2019-09-28 08:14] LABS: ALANINE AMINOTRANSFERASE 20 U/L (12-78); ALBUMIN 2.7 g/dL (3.4-4.8); ANION GAP 5 (5-15); ASPARTATE AMINOTRANSFERASE 16 U/L (10-37); CALCIUM 8.4 mg/dL (8.4-11.0); CHLORIDE 98 mmol/L (98-107); CREATININE 0.88 mg/dL (0.55-1.30); GLUCOSE 98 mg/dL (70-99); POTASSIUM 3.4 mmol/L (3.5-5.1); SODIUM SERUM 137 mmol/L (136-145); TOTAL BILIRUBIN 0.4 mg/dL (0.0-1.0); UREA NITROGEN, BLOOD 13 mg/dL (8-21)
[2019-09-28] MEDS: ENOXAPARIN SODIUM 100 MG/ML SYRINGE SUBCUT SCH (08:49)
[2019-09-28] MEDS: FUROSEMIDE 40 MG/4 ML VIAL IVP SCH (08:49)
[2019-09-28] MEDS: ATORVASTATIN 20 MG TABLET PO SCH (08:50)
[2019-09-28] MEDS: FLUoxetine HCL 10 MG CAPSULE (PROzac) PO SCH (08:50)
[2019-09-28] MEDS: SPIRONOLACTONE 25 MG TABLET (ALDACTONE) PO SCH (08:51)
[2019-09-28] MEDS: AMIODARONE HCL 200 MG TABLET PO SCH (08:51)
[2019-09-28] MEDS: ASPIRIN 81 MG TAB.CHEW PO SCH (08:53)
[2019-09-28] MEDS: CLOPIDOGREL BISULFATE 75 MG TABLET PO SCH (08:53)
[2019-09-28] MEDS: CARVEDILOL 6.25 MG TABLET (COREG) PO SCH (08:54)
--- NOTE | 2019-09-28 09:30 | NUR ---
Ambulate in the hallway with front wheel walker in Mara air, Pt 02 sat is 97% after walking. Denies any Dizziness and shortness of breath.
[2019-09-28 09:52] LABS: INR 1.4 (0.8-1.2); PROTHROMBIN TIME 14.3 SECS (9.5-12.5)
--- NOTE | 2019-09-28 10:30 | NUR ---
Pt has a discharge order, but Dr. magallanes wants to know patient's home medications. Informed patient's that she can't leave yet until she gets the list of her home medications. pt verbalize understanding.
--- NOTE | 2019-09-28 10:47 | NUR ---
Pt still trying to call her daughter to get the home medications.
--- NOTE | 2019-09-28 11:00 | NUR ---
notes- Seen by Dr. Newton at bedside.
--- NOTE | 2019-09-28 11:27 | NUR ---
PT IS LAYING IN BED COMFORTABLY. NO C/O PAIN AT THIS TIME. NO RESPIRATORY DISTRESS NOTED. PT AWAITING DAUGHTER TO BRING MEDICATION LIST, PENDING DC.
[2019-09-28 12:00] VITALS: BP_SYST 96
--- NOTE | 2019-09-28 12:28 | NUR ---
spoke to Dixie HCP case making machine operator and made aware of home DME, Patient can go home now and they just gonna deliver the nebulizer at home.
--- NOTE | 2019-09-28 13:04 | NUR ---
Notes- Per patient, she is unable to provide her home medication list, she lives with her roomate. The room mate is here at this time and he is unable to find her medication at home. The daughter has work and patient really wants to go home now.
[2019-09-28 13:15] VITALS: BP_SYST 96
--- NOTE | 2019-09-28 13:20 | NUR ---
Called and made follow up appointment for Dr. Bunn clinic on October 01. at 2pm. Make patient aware, and to bring prescription from the hospital. Pt is unable to provide her home medications at this time.
[2019-09-28] MEDS ORDERED: FURO-149 PO (13:21)
[2019-09-28] MEDS ORDERED: SPIR25TA PO (13:22)
[2019-09-28] MEDS ORDERED: AMIO200T4 PO (13:22)
[2019-09-28] MEDS ORDERED: CARV6.2554 PO (13:23)
[2019-09-28] MEDS ORDERED: WARF4TAB2 PO (13:27)
--- NOTE | 2019-09-28 13:57 | NUR ---
Discharge patient home accompanied by her friend/roomate. Denies any chest pain or shortness of breath. O2 sat at 96% in andrew air. pt is very anxious to go home. Discharge instruction and prescription given and discussed with patient. discussed Follow up appointment on at 2pm. pt verbalize understanding. Arm Band IVL removed.
[2019-09-28] MEDS ORDERED: FUROSEMIDE 40 MG TABLET PO SCH (21:00)
--- NOTE | 2019-10-01 16:31 | NUR ---
DISCHARGE FOLLOW UP PHONE CALL JONE/ PALOMA CARTER PHONED PATIENT, . PATIENT STATED SHE IS FEELING BETTER. SHE UNDERSTOOD HER DISCHARGE INSTRUCTIONS. ALREADY FILLED HER PRESCRIPTION AND FOLLOWED UP WITH HER PCP. HAS NO QUESTIONS OR CONCERNS.
== END 2019-09-28 14:00 | disposition home or self-care (01) | DRG 291 ==
LOC: SED 09:11 → STU 11:10
PROVIDERS: ADMIT Internal Medicine Hospice and Palliative Medicine; ATTEND Internal Medicine Hospice and Palliative Medicine
DX: I11.0 Hypertensive heart disease with heart failure (principal); J96.90 Respiratory failure, unspecified, unspecified whether with hypoxia or hypercapnia; E87.1 Hypo-osmolality and hyponatremia; J44.1 Chronic obstructive pulmonary disease with (acute) exacerbation; E46 Unspecified protein-calorie malnutrition; I48.0 Paroxysmal atrial fibrillation; F17.210 Nicotine dependence, cigarettes, uncomplicated; I25.10 Atherosclerotic heart disease of native coronary artery without angina pectoris; I25.5 Ischemic cardiomyopathy; I50.41 Acute combined systolic (congestive) and diastolic (congestive) heart failure; Z96.651 Presence of right artificial knee joint; E66.9 Obesity, unspecified; F32.9 Major depressive disorder, single episode, unspecified; I51.3 Intracardiac thrombosis, not elsewhere classified; M17.12 Unilateral primary osteoarthritis, left knee; Z79.01 Long term (current) use of anticoagulants; Z91.14 Patient's other noncompliance with medication regimen; Z91.19 Patient's noncompliance with other medical treatment and regimen; Z95.5 Presence of coronary angioplasty implant and graft; I25.2 Old myocardial infarction; Z99.81 Dependence on supplemental oxygen; Z68.37 Body mass index [BMI] 37.0-37.9, adult
CPT/HCPCS: 36415; 36600; 71045; 80053; 80061; 82550-TC; 82803-TC; 83880; 84443-TC; 84484; 85025; 85610-TC; 87081; 93005; 93306; 94640; 94760; 96374; 96375; 99291; G0378; J0456; J0696; J1650; J1940; J2930; J7050; J7060; J7612; J7613

== ENCOUNTER 2019-10-28 16:43 | Inpatient (IN) | payer OTHER ==
[~2019-10-28] VITALS: Ht 165.1 cm; Wt 98.2 kg
[2019-10-28 16:43] VITALS: BP_SYST 140
[~2019-10-28 16:43] MED LIST: AMIO200T4 PO; CARV6.2554 PO; FURO-149 PO; SPIR25TA PO; WARF4TAB2 PO
[2019-10-28] MEDS ORDERED: FUROSEMIDE 40 MG/4 ML VIAL IVP ONE (17:15)
[2019-10-28] MEDS ORDERED: IPRATROPIUM/ALBUTEROL SULFATE 3 ML AMPUL.NEB (DUONEB) INH ONE (17:15)
[2019-10-28 17:27] LABS: BASOPHILS # (AUTO) 0.1 K/uL (0.0-0.2); BASOPHILS % (AUTO) 1.6 % (0.0-2.0); EOSINOPHILS # (AUTO) 0.1 K/uL (0.0-0.4); EOSINOPHILS % (AUTO) 0.8 % (0.0-4.0); HEMATOCRIT 36.2 % (36-48); HEMOGLOBIN 12.2 g/dL (12.0-16.0); LYMPHOCYTES # (AUTO) 1.7 K/uL (1.0-5.5); LYMPHOCYTES % (AUTO) 20.9 % (20.5-51.5); MEAN CORPUSCULAR HEMOGLOBIN 28 pg (27-31); MEAN CORPUSCULAR HGB CONC 34 % (32-36); MEAN CORPUSCULAR VOLUME 84 fL (79.0-98.0); MONOCYTES # (AUTO) 0.3 K/uL (0.0-1.0); MONOCYTES % (AUTO) 3.9 % (1.7-9.3); NEUTROPHILS # (AUTO) 5.9 K/uL (1.8-7.7); NEUTROPHILS % (AUTO) 72.8 % (40.0-70.0); PLATELET COUNT (AUTO) 430 K/uL (130-430); RED BLOOD CELL COUNT(AUTO) 4.33 MIL/uL (4.2-6.2); RED CELL DISTRIBUTION WIDTH 15.7 % (9.0-15.0); WHITE BLOOD COUNT (AUTO) 8.1 K/uL (4.8-10.8)
[2019-10-28 18:00] LABS: ANION GAP 8 (5-15); CHLORIDE 92 mmol/L (98-107); CREATININE 0.91 mg/dL (0.55-1.30); GLUCOSE 141 mg/dL (70-99); SODIUM SERUM 129 mmol/L (136-145); UREA NITROGEN, BLOOD 8 mg/dL (8-21)
[2019-10-28 18:04] LABS: ALANINE AMINOTRANSFERASE 18 U/L (12-78); ALBUMIN 3.1 g/dL (3.4-4.8); ASPARTATE AMINOTRANSFERASE 9 U/L (10-37); TOTAL BILIRUBIN 0.3 mg/dL (0.0-1.0)
[2019-10-28 18:06] LABS: POTASSIUM 2.9 mmol/L (3.5-5.1)
[2019-10-28] MEDS ORDERED: POTASSIUM CHLORIDE 20 MEQ TAB.PRT.SR PO ONE (18:15)
[2019-10-28 18:55] LABS: BILIRUBIN,URINE NEGATIVE (NEGATIVE); BLOOD, URINE NEGATIVE (NEGATIVE); CLARITY/URINE CLEAR (CLEAR); COLOR,URINE YELLOW (YELLOW); GLUCOSE,URINE NEGATIVE (NEGATIVE); KETONES,URINE NEGATIVE (NEGATIVE); LEUKOCYTE ESTERASE ,URINE NEGATIVE (NEGATIVE); NITRITE, URINE NEGATIVE (NEGATIVE); PH,URINE 6.5 (5.0-8.0); PROTEIN URINE NEGATIVE (NEGATIVE); UROBILINOGEN,URINE 0.2 (0.2-1.0)
[2019-10-28] MEDS ORDERED: LEVOFLOXACIN 500 MG/D5W 100 ML IV ONE (19:30)
[2019-10-28] MEDS ORDERED: LIP40 PO (19:37)
[2019-10-28] MEDS ORDERED: FURO-149 PO (19:38)
[2019-10-28] MEDS ORDERED: CLOP75TA32 PO (19:38)
[2019-10-28] MEDS ORDERED: WARF2TAB2 PO (19:39)
[2019-10-28 21:12] VITALS: BP_SYST 112
[2019-10-28] MEDS ORDERED: ACETAMINOPHEN 325 MG TABLET PO PRN (21:30)
[2019-10-28] MEDS ORDERED: ONDANSETRON HCL 4 MG/2 ML VIAL IVP PRN (21:30)
[2019-10-28] MEDS ORDERED: cefTRIAXone 1 GM IVPB PREMIX 50 ML IV SCH (21:30)
[2019-10-28] MEDS ORDERED: ALBUTEROL SULFATE 0.083% 2.5 MG/3 ML VIAL.NEB INH PRN (21:30)
[2019-10-28] MEDS ORDERED: AZITHROMYCIN 500 MG in NS 250 ML IV SCH (21:30)
[2019-10-28] MEDS ORDERED: LORazepam 2 MG/ML VIAL IVP PRN (21:30)
[2019-10-28 21:40] VITALS: BP_SYST 103
[2019-10-28] MEDS: NORMAL SALINE 5 ML DISP.SYRIN IVF SCH (22:59)
[2019-10-28] MEDS ORDERED: AZITHROMYCIN 500 MG/VIAL (ZITHROMAX) IV ONE (23:46)
[2019-10-28] MEDS ORDERED: cefTRIAXone 1 GM IVPB PREMIX 50 ML IV ONE (23:46)
[2019-10-29 07:15] LABS: BASOPHILS % (AUTO) 0.6 % (0.0-2.0); EOSINOPHILS # (AUTO) 0.1 K/uL (0.0-0.4); EOSINOPHILS % (AUTO) 1.2 % (0.0-4.0); HEMATOCRIT 33.9 % (36-48); HEMOGLOBIN 11.6 g/dL (12.0-16.0); LYMPHOCYTES # (AUTO) 1.9 K/uL (1.0-5.5); LYMPHOCYTES % (AUTO) 23.1 % (20.5-51.5); MEAN CORPUSCULAR HEMOGLOBIN 29 pg (27-31); MEAN CORPUSCULAR HGB CONC 34 % (32-36); MEAN CORPUSCULAR VOLUME 84 fL (79.0-98.0); MONOCYTES # (AUTO) 0.6 K/uL (0.0-1.0); MONOCYTES % (AUTO) 7.2 % (1.7-9.3); NEUTROPHILS # (AUTO) 5.7 K/uL (1.8-7.7); NEUTROPHILS % (AUTO) 67.9 % (40.0-70.0); PLATELET COUNT (AUTO) 378 K/uL (130-430); RED BLOOD CELL COUNT(AUTO) 4.04 MIL/uL (4.2-6.2); RED CELL DISTRIBUTION WIDTH 15.4 % (9.0-15.0); WHITE BLOOD COUNT (AUTO) 8.4 K/uL (4.8-10.8)
[2019-10-29] MEDS: NORMAL SALINE 5 ML DISP.SYRIN IVF SCH (07:43)
[2019-10-29 07:51] LABS: ALANINE AMINOTRANSFERASE 10 U/L (12-78); ALBUMIN 2.8 g/dL (3.4-4.8); ANION GAP 5 (5-15); ASPARTATE AMINOTRANSFERASE 8 U/L (10-37); CALCIUM 8.4 mg/dL (8.4-11.0); CHLORIDE 100 mmol/L (98-107); CREATININE 0.89 mg/dL (0.55-1.30); GLUCOSE 109 mg/dL (70-99); POTASSIUM 4.4 mmol/L (3.5-5.1); SODIUM SERUM 138 mmol/L (136-145); TOTAL BILIRUBIN 0.4 mg/dL (0.0-1.0); UREA NITROGEN, BLOOD 7 mg/dL (8-21)
[2019-10-29 08:00] VITALS: BP_SYST 110
[2019-10-29 08:25] LABS: CHOLESTEROL 105 mg/dL (<200); HDL CHOLESTEROL 37 mg/dL (>55); LDL CHOLESTEROL 46 mg/dL (<100); TRIGLYCERIDES 171 mg/dL (30-150)
[2019-10-29] MEDS ORDERED: FUROSEMIDE 40 MG TABLET PO SCH ×2 (09:00)
[2019-10-29] MEDS ORDERED: AMIODARONE HCL 200 MG TABLET PO SCH (09:00)
[2019-10-29] MEDS ORDERED: CARVEDILOL 6.25 MG TABLET (COREG) PO SCH (09:00)
[2019-10-29] MEDS ORDERED: CLOPIDOGREL BISULFATE 75 MG TABLET PO SCH (09:00)
[2019-10-29] MEDS ORDERED: SPIRONOLACTONE 25 MG TABLET (ALDACTONE) PO SCH (09:00)
[2019-10-29] MEDS ORDERED: ATORVASTATIN 20 MG TABLET PO SCH (09:00)
[2019-10-29 10:06] LABS: PROTHROMBIN TIME 19.7 SECS (9.5-12.5)
[2019-10-29] MEDS ORDERED: BUDE6HFA INH ×2 (10:57→10:59)
[2019-10-29] MEDS ORDERED: ALBU2TAB4 PO ×2 (10:59→11:00)
[2019-10-29 11:06] VITALS: BP_SYST 107
[2019-10-29] MEDS ORDERED: WARFARIN SODIUM 2 MG TABLET PO ONE (18:00)
== END 2019-10-29 11:40 | disposition home or self-care (01) | DRG 291 ==
LOC: SED 16:43 → STU 19:44
PROVIDERS: ADMIT Internal Medicine Hospice and Palliative Medicine; ATTEND Internal Medicine Hospice and Palliative Medicine
DX: I11.0 Hypertensive heart disease with heart failure (principal); I50.31 Acute diastolic (congestive) heart failure; J44.1 Chronic obstructive pulmonary disease with (acute) exacerbation; E87.2 Acidosis; E87.1 Hypo-osmolality and hyponatremia; I50.9 Heart failure, unspecified; E11.9 Type 2 diabetes mellitus without complications; E87.6 Hypokalemia; F17.210 Nicotine dependence, cigarettes, uncomplicated; Z96.651 Presence of right artificial knee joint; M17.12 Unilateral primary osteoarthritis, left knee; I25.10 Atherosclerotic heart disease of native coronary artery without angina pectoris; I25.5 Ischemic cardiomyopathy; I48.0 Paroxysmal atrial fibrillation; Z88.5 Allergy status to narcotic agent; Z79.899 Other long term (current) drug therapy; Z95.5 Presence of coronary angioplasty implant and graft; Z82.49 Family history of ischemic heart disease and other diseases of the circulatory system; Z79.02 Long term (current) use of antithrombotics/antiplatelets; Z79.01 Long term (current) use of anticoagulants; I25.2 Old myocardial infarction; Z91.11 Patient's noncompliance with dietary regimen
CPT/HCPCS: 36415; 71046-TC; 80053; 80061; 81003; 83605; 83880; 84484; 85025; 85610-TC; 87040-TC; 87081; 87086; 93005; 93306; 94640; 96365; 96375; 99285; G0378; J0456; J0696; J1940; J1956; J2060; J7050; J7620

== ENCOUNTER 2019-11-06 15:16 | Emergency (ER) | payer OTHER ==
[~2019-11-06 15:16] MED LIST changes: +ALBU2TAB4 PO; +BUDE6HFA INH; +CLOP75TA32 PO; +LIP40 PO; +WARF2TAB2 PO
[2019-11-06] MEDS ORDERED: ONDANSETRON HCL 4 MG/2 ML VIAL ONE (17:18)
[2019-11-06] MEDS ORDERED: LEVOFLOXACIN 500 MG TABLET ONE (17:18)
[2019-11-16 17:28] LABS: HEMATOCRIT 35.4 % (36-48); HEMOGLOBIN 11.6 g/dL (12.0-16.0); MEAN CORPUSCULAR VOLUME 84 fL (79.0-98.0); WHITE BLOOD COUNT (AUTO) 7.4 K/uL (4.8-10.8)
[2019-11-16 17:29] LABS: EOSINOPHILS % (AUTO) 1.3 % (0.0-4.0); LYMPHOCYTES # (AUTO) 1.9 K/uL (1.0-5.5); LYMPHOCYTES % (AUTO) 25.3 % (20.5-51.5); MEAN CORPUSCULAR HEMOGLOBIN 28 pg (27-31); MEAN CORPUSCULAR HGB CONC 33 % (32-36); MONOCYTES # (AUTO) 0.5 K/uL (0.0-1.0); MONOCYTES % (AUTO) 6.1 % (1.7-9.3); NEUTROPHILS # (AUTO) 4.9 K/uL (1.8-7.7); NEUTROPHILS % (AUTO) 66.3 % (40.0-70.0); PLATELET COUNT (AUTO) 350 K/uL (130-430); RED CELL DISTRIBUTION WIDTH 15.7 % (9.0-15.0)
[2019-11-16 17:30] LABS: BASOPHILS # (AUTO) 0.1 K/uL (0.0-0.2); EOSINOPHILS # (AUTO) 0.1 K/uL (0.0-0.4)
[2019-11-16 17:31] LABS: ANION GAP 6 (5-15); CALCIUM 8.5 mg/dL (8.4-11.0); CHLORIDE 98 mmol/L (98-107); GLUCOSE 161 mg/dL (70-99); POTASSIUM 3.4 mmol/L (3.5-5.1); SODIUM SERUM 133 mmol/L (136-145); UREA NITROGEN, BLOOD 8 mg/dL (8-21)
[2019-11-16 17:34] LABS: TOTAL BILIRUBIN 0.3 mg/dL (0.0-1.0)
[2019-11-16 17:35] LABS: ALANINE AMINOTRANSFERASE 12 U/L (12-78); ALBUMIN 2.9 g/dL (3.4-4.8); ASPARTATE AMINOTRANSFERASE 10 U/L (10-37)
[2019-11-19 21:41] LABS: ALANINE AMINOTRANSFERASE 12 U/L (12-78); ANION GAP 6 (5-15); ASPARTATE AMINOTRANSFERASE 10 U/L (10-37); CALCIUM 8.5 mg/dL (8.4-11.0); CHLORIDE 98 mmol/L (98-107); CREATININE 0.83 mg/dL (0.55-1.30); GLUCOSE 161 mg/dL (70-99); POTASSIUM 3.4 mmol/L (3.5-5.1); SODIUM SERUM 133 mmol/L (136-145); TOTAL BILIRUBIN 0.3 mg/dL (0.0-1.0); UREA NITROGEN, BLOOD 8 mg/dL (8-21)
[2019-11-19 21:42] LABS: ALBUMIN 2.9 g/dL (3.4-4.8)
== END 2019-11-06 17:34 | disposition home or self-care (01) ==
LOC: SED 15:16
DX: J44.9 Chronic obstructive pulmonary disease, unspecified (principal); I11.0 Hypertensive heart disease with heart failure; I50.9 Heart failure, unspecified
CPT/HCPCS: 36415; 36600; 71045; 80053; 82803; 83880; 84484; 85025; 85610; 85730; 87040; 87086; 94640; 96374; 99284; J2405

== ENCOUNTER 2019-11-10 06:47 | Inpatient (IN) | payer OTHER ==
[~2019-11-10] VITALS: Ht 165.1 cm; Wt 96.6 kg
[2019-11-10 06:56] VITALS: BP_SYST 123
[2019-11-10] MEDS ORDERED: ASPIRIN 81 MG TAB.CHEW PO ONE (07:00)
[2019-11-10] MEDS ORDERED: IPRATROPIUM/ALBUTEROL SULFATE 3 ML AMPUL.NEB (DUONEB) INH ONE ×3 (07:00)
[2019-11-10] MEDS ORDERED: methylPREDNISolone SOD SUCC/PF 62.5 MG/ML VIAL IVP ONE (07:00)
[2019-11-10] MEDS ORDERED: AZITHROMYCIN 250 MG TABLET PO ONE (07:30)
[2019-11-10] MEDS ORDERED: PIPERACILLIN/TAZO 3.375 GM in NS 50 ML IV ONE (07:30)
[2019-11-10] MEDS ORDERED: VANCOMYCIN HCL 1,000 MG in NS 250 ML IV ONE (07:30)
[2019-11-10 07:52] LABS: BASOPHILS # (AUTO) 0.1 K/uL (0.0-0.2); BASOPHILS % (AUTO) 1.1 % (0.0-2.0); EOSINOPHILS # (AUTO) 0.1 K/uL (0.0-0.4); EOSINOPHILS % (AUTO) 1.5 % (0.0-4.0); HEMATOCRIT 36.4 % (36-48); HEMOGLOBIN 11.9 g/dL (12.0-16.0); LYMPHOCYTES # (AUTO) 1.7 K/uL (1.0-5.5); LYMPHOCYTES % (AUTO) 18.5 % (20.5-51.5); MEAN CORPUSCULAR HEMOGLOBIN 28 pg (27-31); MEAN CORPUSCULAR HGB CONC 33 % (32-36); MEAN CORPUSCULAR VOLUME 84 fL (79.0-98.0); MONOCYTES # (AUTO) 0.5 K/uL (0.0-1.0); MONOCYTES % (AUTO) 5.2 % (1.7-9.3); NEUTROPHILS # (AUTO) 6.9 K/uL (1.8-7.7); NEUTROPHILS % (AUTO) 73.7 % (40.0-70.0); PLATELET COUNT (AUTO) 341 K/uL (130-430); RED BLOOD CELL COUNT(AUTO) 4.32 MIL/uL (4.2-6.2); RED CELL DISTRIBUTION WIDTH 16.4 % (9.0-15.0); WHITE BLOOD COUNT (AUTO) 9.4 K/uL (4.8-10.8)
[2019-11-10 08:13] LABS: INR 1.1 (0.8-1.2)
[2019-11-10 08:21] LABS: ANION GAP 8 (5-15); CHLORIDE 103 mmol/L (98-107); CREATININE 0.89 mg/dL (0.55-1.30); GLUCOSE 129 mg/dL (70-99); POTASSIUM 3.6 mmol/L (3.5-5.1); SODIUM SERUM 138 mmol/L (136-145); UREA NITROGEN, BLOOD 7 mg/dL (8-21)
[2019-11-10 08:26] LABS: ALANINE AMINOTRANSFERASE 19 U/L (12-78); ASPARTATE AMINOTRANSFERASE 15 U/L (10-37); LIPASE 157 U/L (73-393); TOTAL BILIRUBIN 0.5 mg/dL (0.0-1.0)
[2019-11-10] MEDS ORDERED: FUROSEMIDE 40 MG/4 ML VIAL IVP ONE (08:30)
[2019-11-10] MEDS ORDERED: LEVOFLOXACIN 500 MG/D5W 100 ML IV ONE (08:45)
[2019-11-10] MEDS ORDERED: BUDESONIDE/FORMOTEROL 160-4.5 mCg, 6 GM INHALER INH SCH (10:30)
[2019-11-10] MEDS ORDERED: ALBUTEROL SULFATE 0.083% 2.5 MG/3 ML VIAL.NEB INH PRN (10:30)
[2019-11-10] MEDS ORDERED: IPRATROPIUM BROM 0.5 MG/2.5 ML VIAL.NEB (ATROVENT) INH PRN (10:30)
[2019-11-10 11:50] LABS: BILIRUBIN,URINE NEGATIVE (NEGATIVE); BLOOD, URINE NEGATIVE (NEGATIVE); CLARITY/URINE CLEAR (CLEAR); COLOR,URINE YELLOW (YELLOW); GLUCOSE,URINE NEGATIVE (NEGATIVE); KETONES,URINE NEGATIVE (NEGATIVE); LEUKOCYTE ESTERASE ,URINE NEGATIVE (NEGATIVE); NITRITE, URINE NEGATIVE (NEGATIVE); PROTEIN URINE NEGATIVE (NEGATIVE); UROBILINOGEN,URINE 0.2 (0.2-1.0)
[2019-11-10] MEDS ORDERED: AMIODARONE HCL 200 MG TABLET PO ONE (12:00)
[2019-11-10] MEDS ORDERED: ATORVASTATIN 20 MG TABLET PO ONE (12:00)
[2019-11-10] MEDS ORDERED: cefTRIAXone 1 GM VIAL ONE (13:10)
[2019-11-10] MEDS: cefTRIAXone 1 GM in D5W 50 ML IV SCH (13:13)
[2019-11-10] MEDS: AZITHROMYCIN 500 MG in NS 250 ML IV SCH (13:13)
[2019-11-10] MEDS: ALBUTEROL SULFATE 0.083% 2.5 MG/3 ML VIAL.NEB INH SCH ×2 (13:55→19:35)
[2019-11-10] MEDS: IPRATROPIUM BROM 0.5 MG/2.5 ML VIAL.NEB (ATROVENT) INH SCH ×2 (13:55→19:36)
[2019-11-10 14:35] VITALS: BP_SYST 127
[2019-11-10 16:18] VITALS: BP_SYST 94
[2019-11-10] MEDS ORDERED: FLU VACC TS2019(65UP)/MF59C/PF 45 MCG/0.5 ML SYRINGE I.M. PRN (16:30)
[2019-11-10] MEDS ORDERED: *LOVENOX 1MG/KG Q12H/PHARMACY XX ONE (17:00)
[2019-11-10] MEDS ORDERED: methylPREDNISolone SOD SUCC 40 MG/ML VIAL IVP ONE (17:30)
[2019-11-10] MEDS: ENOXAPARIN SODIUM 100 MG/ML SYRINGE SUBCUT SCH (18:31)
[2019-11-10] MEDS: BUDESONIDE 0.5 MG/2 ML AMPUL.NEB INH SCH (19:51)
[2019-11-10 20:00] VITALS: BP_SYST 108
[2019-11-10] MEDS: methylPREDNISolone SOD SUCC 40 MG/ML VIAL IVP SCH (22:17)
[2019-11-10] MEDS: CARVEDILOL 6.25 MG TABLET (COREG) PO SCH (22:21)
[2019-11-10] MEDS: ZOLPIDEM TARTRATE 5 MG TABLET PO PRN (23:51)
[2019-11-11 00:25] VITALS: BP_SYST 107
[2019-11-11] MEDS: ALBUTEROL SULFATE 0.083% 2.5 MG/3 ML VIAL.NEB INH SCH ×4 (01:00→20:00)
[2019-11-11] MEDS: IPRATROPIUM BROM 0.5 MG/2.5 ML VIAL.NEB (ATROVENT) INH SCH ×4 (01:00→20:00)
[2019-11-11] MEDS: ENOXAPARIN SODIUM 100 MG/ML SYRINGE SUBCUT SCH ×2 (06:03→17:54)
[2019-11-11 07:18] LABS: HEMATOCRIT 34.3 % (36-48); HEMOGLOBIN 11.5 g/dL (12.0-16.0); LYMPHOCYTES # (AUTO) 0.7 K/uL (1.0-5.5); LYMPHOCYTES % (AUTO) 7.4 % (20.5-51.5); MEAN CORPUSCULAR HEMOGLOBIN 28 pg (27-31); MEAN CORPUSCULAR HGB CONC 34 % (32-36); MEAN CORPUSCULAR VOLUME 84 fL (79.0-98.0); MONOCYTES # (AUTO) 0.1 K/uL (0.0-1.0); MONOCYTES % (AUTO) 1.1 % (1.7-9.3); NEUTROPHILS # (AUTO) 8.3 K/uL (1.8-7.7); NEUTROPHILS % (AUTO) 91.5 % (40.0-70.0); PLATELET COUNT (AUTO) 345 K/uL (130-430); RED BLOOD CELL COUNT(AUTO) 4.08 MIL/uL (4.2-6.2); RED CELL DISTRIBUTION WIDTH 16.3 % (9.0-15.0); WHITE BLOOD COUNT (AUTO) 9.1 K/uL (4.8-10.8)
[2019-11-11] MEDS: BUDESONIDE 0.5 MG/2 ML AMPUL.NEB INH SCH ×2 (07:21→20:32)
[2019-11-11 07:37] LABS: ANION GAP 10 (5-15); CALCIUM 8.5 mg/dL (8.4-11.0); CHLORIDE 101 mmol/L (98-107); CREATININE 0.96 mg/dL (0.55-1.30); GLUCOSE 215 mg/dL (70-99); SODIUM SERUM 137 mmol/L (136-145); UREA NITROGEN, BLOOD 11 mg/dL (8-21)
[2019-11-11 08:01] VITALS: BP_SYST 106
[2019-11-11] MEDS: methylPREDNISolone SOD SUCC 40 MG/ML VIAL IVP SCH (08:11)
[2019-11-11] MEDS: ATORVASTATIN 20 MG TABLET PO SCH (08:12)
[2019-11-11] MEDS: CLOPIDOGREL BISULFATE 75 MG TABLET PO SCH (08:12)
[2019-11-11] MEDS: SPIRONOLACTONE 25 MG TABLET (ALDACTONE) PO SCH (08:12)
[2019-11-11] MEDS: AMIODARONE HCL 200 MG TABLET PO SCH (08:12)
[2019-11-11] MEDS: CARVEDILOL 6.25 MG TABLET (COREG) PO SCH ×2 (08:13→21:56)
[2019-11-11] MEDS: FUROSEMIDE 40 MG TABLET PO SCH (08:13)
[2019-11-11] MEDS ORDERED: FUROSEMIDE 40 MG TABLET PO SCH (09:00)
[2019-11-11] MEDS: cefTRIAXone 1 GM in D5W 50 ML IV SCH (11:18)
[2019-11-11 11:35] VITALS: BP_SYST 113
[2019-11-11] MEDS: AZITHROMYCIN 500 MG in NS 250 ML IV SCH (12:06)
[2019-11-11 15:37] VITALS: BP_SYST 91
[2019-11-11] MEDS: WARFARIN SODIUM 4 MG TABLET PO SCH (17:54)
[2019-11-11] MEDS ORDERED: ONDA4TAB5 PO (18:04)
[2019-11-11] MEDS ORDERED: ALBU8.5H8 INH (18:04)
[2019-11-11] MEDS ORDERED: PRO20 PO (18:04)
[2019-11-11 20:00] VITALS: BP_SYST 109
[2019-11-11] MEDS: ZOLPIDEM TARTRATE 5 MG TABLET PO PRN (21:56)
[2019-11-11] MEDS: PREDNISONE 20 MG TABLET PO SCH (21:56)
[2019-11-12 00:24] VITALS: BP_SYST 95
[2019-11-12] MEDS: IPRATROPIUM BROM 0.5 MG/2.5 ML VIAL.NEB (ATROVENT) INH SCH ×4 (01:50→20:06)
[2019-11-12] MEDS: ALBUTEROL SULFATE 0.083% 2.5 MG/3 ML VIAL.NEB INH SCH ×4 (01:50→20:06)
[2019-11-12] MEDS: ENOXAPARIN SODIUM 100 MG/ML SYRINGE SUBCUT SCH ×2 (05:32→17:33)
[2019-11-12] MEDS: BUDESONIDE 0.5 MG/2 ML AMPUL.NEB INH SCH ×2 (07:00→20:06)
[2019-11-12 08:04] VITALS: BP_SYST 115
[2019-11-12] MEDS: ATORVASTATIN 20 MG TABLET PO SCH (08:16)
[2019-11-12] MEDS: CLOPIDOGREL BISULFATE 75 MG TABLET PO SCH (08:16)
[2019-11-12] MEDS: CARVEDILOL 6.25 MG TABLET (COREG) PO SCH ×2 (08:16→20:41)
[2019-11-12] MEDS: FUROSEMIDE 40 MG TABLET PO SCH (08:17)
[2019-11-12] MEDS: PREDNISONE 20 MG TABLET PO SCH ×2 (08:17→20:41)
[2019-11-12] MEDS: AMIODARONE HCL 200 MG TABLET PO SCH (08:17)
[2019-11-12] MEDS: SPIRONOLACTONE 25 MG TABLET (ALDACTONE) PO SCH (08:18)
[2019-11-12 10:03] LABS: INR 1.2 (0.8-1.2); PROTHROMBIN TIME 12.3 SECS (9.5-12.5)
[2019-11-12] MEDS: cefTRIAXone 1 GM in D5W 50 ML IV SCH (11:01)
[2019-11-12] MEDS: AZITHROMYCIN 500 MG in NS 250 ML IV SCH (11:58)
[2019-11-12 12:25] VITALS: BP_SYST 107
[2019-11-12 16:12] VITALS: BP_SYST 99
[2019-11-12] MEDS: WARFARIN SODIUM 4 MG TABLET PO SCH (17:33)
[2019-11-12 20:00] VITALS: BP_SYST 102
[2019-11-12] MEDS: ZOLPIDEM TARTRATE 5 MG TABLET PO PRN (21:32)
[2019-11-12] MEDS: ONDANSETRON HCL 4 MG/2 ML VIAL IVP PRN (22:13)
[2019-11-13] MEDS: ALBUTEROL SULFATE 0.083% 2.5 MG/3 ML VIAL.NEB INH SCH ×4 (01:00→19:00)
[2019-11-13] MEDS: IPRATROPIUM BROM 0.5 MG/2.5 ML VIAL.NEB (ATROVENT) INH SCH ×4 (01:00→19:00)
[2019-11-13] MEDS: ENOXAPARIN SODIUM 100 MG/ML SYRINGE SUBCUT SCH ×2 (06:18→17:54)
[2019-11-13 06:51] LABS: BASOPHILS % (AUTO) 0.1 % (0.0-2.0); HEMOGLOBIN 10.8 g/dL (12.0-16.0); LYMPHOCYTES # (AUTO) 0.9 K/uL (1.0-5.5); LYMPHOCYTES % (AUTO) 7.9 % (20.5-51.5); MEAN CORPUSCULAR HEMOGLOBIN 28 pg (27-31); MEAN CORPUSCULAR HGB CONC 33 % (32-36); MEAN CORPUSCULAR VOLUME 85 fL (79.0-98.0); MONOCYTES # (AUTO) 0.5 K/uL (0.0-1.0); MONOCYTES % (AUTO) 4.3 % (1.7-9.3); NEUTROPHILS # (AUTO) 9.8 K/uL (1.8-7.7); NEUTROPHILS % (AUTO) 87.7 % (40.0-70.0); PLATELET COUNT (AUTO) 293 K/uL (130-430); RED CELL DISTRIBUTION WIDTH 16.3 % (9.0-15.0); WHITE BLOOD COUNT (AUTO) 11.2 K/uL (4.8-10.8)
[2019-11-13] MEDS: BUDESONIDE 0.5 MG/2 ML AMPUL.NEB INH SCH ×2 (07:00→19:00)
[2019-11-13 07:27] LABS: ALANINE AMINOTRANSFERASE 13 U/L (12-78); ALBUMIN 2.9 g/dL (3.4-4.8); ANION GAP 4 (5-15); ASPARTATE AMINOTRANSFERASE 9 U/L (10-37); CALCIUM 8.3 mg/dL (8.4-11.0); CHLORIDE 98 mmol/L (98-107); CREATININE 0.89 mg/dL (0.55-1.30); GLUCOSE 158 mg/dL (70-99); SODIUM SERUM 136 mmol/L (136-145); TOTAL BILIRUBIN 0.3 mg/dL (0.0-1.0); UREA NITROGEN, BLOOD 23 mg/dL (8-21)
[2019-11-13 08:31] VITALS: BP_SYST 120
[2019-11-13] MEDS: ATORVASTATIN 20 MG TABLET PO SCH (09:12)
[2019-11-13] MEDS: CARVEDILOL 6.25 MG TABLET (COREG) PO SCH ×2 (09:13→20:14)
[2019-11-13] MEDS: PREDNISONE 20 MG TABLET PO SCH ×2 (09:13→20:13)
[2019-11-13] MEDS: AMIODARONE HCL 200 MG TABLET PO SCH (09:13)
[2019-11-13] MEDS: FUROSEMIDE 40 MG TABLET PO SCH (09:14)
[2019-11-13] MEDS: SPIRONOLACTONE 25 MG TABLET (ALDACTONE) PO SCH (09:14)
[2019-11-13] MEDS: CLOPIDOGREL BISULFATE 75 MG TABLET PO SCH (09:14)
[2019-11-13 09:45] LABS: INR 1.8 (0.8-1.2)
[2019-11-13 10:02] LABS: PROTHROMBIN TIME 18.3 SECS (9.5-12.5)
[2019-11-13] MEDS ORDERED: FUROSEMIDE 40 MG/4 ML VIAL IVP ONE (11:00)
[2019-11-13 11:10] VITALS: BP_SYST 101
[2019-11-13] MEDS: cefTRIAXone 1 GM in D5W 50 ML IV SCH (11:12)
[2019-11-13 11:25] VITALS: BP_SYST 101
[2019-11-13] MEDS: AZITHROMYCIN 500 MG in NS 250 ML IV SCH (12:09)
[2019-11-13 16:42] VITALS: BP_SYST 103
[2019-11-13] MEDS: WARFARIN SODIUM 4 MG TABLET PO SCH (17:53)
[2019-11-13 20:00] VITALS: BP_SYST 105
[2019-11-13] MEDS: FUROSEMIDE 40 MG/4 ML VIAL IVP SCH (20:14)
[2019-11-13] MEDS: ZOLPIDEM TARTRATE 5 MG TABLET PO PRN (21:51)
[2019-11-14] VITALS (7 sets, daily range): BP systolic 92–118
[2019-11-14] MEDS: ALBUTEROL SULFATE 0.083% 2.5 MG/3 ML VIAL.NEB INH SCH ×4 (00:40→19:44)
[2019-11-14] MEDS: IPRATROPIUM BROM 0.5 MG/2.5 ML VIAL.NEB (ATROVENT) INH SCH ×4 (00:40→19:44)
[2019-11-14] MEDS: ENOXAPARIN SODIUM 100 MG/ML SYRINGE SUBCUT SCH (06:13)
[2019-11-14] MEDS: BUDESONIDE 0.5 MG/2 ML AMPUL.NEB INH SCH ×2 (06:54→19:48)
[2019-11-14 08:10] LABS: ANION GAP 3 (5-15); CALCIUM 8.5 mg/dL (8.4-11.0); CHLORIDE 98 mmol/L (98-107); CREATININE 0.89 mg/dL (0.55-1.30); GLUCOSE 138 mg/dL (70-99); SODIUM SERUM 139 mmol/L (136-145); UREA NITROGEN, BLOOD 24 mg/dL (8-21)
[2019-11-14 08:21] LABS: INR 2.1 (0.8-1.2); PROTHROMBIN TIME 20.4 SECS (9.5-12.5)
[2019-11-14] MEDS: CLOPIDOGREL BISULFATE 75 MG TABLET PO SCH (09:00)
[2019-11-14] MEDS: ATORVASTATIN 20 MG TABLET PO SCH (09:00)
[2019-11-14] MEDS: CARVEDILOL 6.25 MG TABLET (COREG) PO SCH ×2 (09:00→20:19)
[2019-11-14] MEDS: FUROSEMIDE 40 MG/4 ML VIAL IVP SCH ×2 (09:00→20:19)
[2019-11-14] MEDS: AMIODARONE HCL 200 MG TABLET PO SCH (09:01)
[2019-11-14] MEDS: SPIRONOLACTONE 25 MG TABLET (ALDACTONE) PO SCH (09:01)
[2019-11-14] MEDS: PREDNISONE 20 MG TABLET PO SCH ×2 (09:05→20:18)
[2019-11-14] MEDS: cefTRIAXone 1 GM in D5W 50 ML IV SCH (11:14)
[2019-11-14] MEDS: AZITHROMYCIN 500 MG in NS 250 ML IV SCH (11:15)
[2019-11-14] MEDS: ONDANSETRON HCL 4 MG/2 ML VIAL IVP PRN (17:28)
[2019-11-14] MEDS: WARFARIN SODIUM 4 MG TABLET PO SCH (17:32)
[2019-11-14] MEDS: ZOLPIDEM TARTRATE 5 MG TABLET PO PRN (21:44)
[2019-11-15] VITALS: BP_SYST 105
[2019-11-15] MEDS: ALBUTEROL SULFATE 0.083% 2.5 MG/3 ML VIAL.NEB INH SCH ×3 (07:20→19:21)
[2019-11-15] MEDS: BUDESONIDE 0.5 MG/2 ML AMPUL.NEB INH SCH ×2 (07:20→19:42)
[2019-11-15] MEDS: IPRATROPIUM BROM 0.5 MG/2.5 ML VIAL.NEB (ATROVENT) INH SCH ×3 (07:20→19:21)
[2019-11-15 07:36] LABS: BASOPHILS % (AUTO) 0.1 % (0.0-2.0); EOSINOPHILS % (AUTO) 0.1 % (0.0-4.0); HEMATOCRIT 35.2 % (36-48); HEMOGLOBIN 11.6 g/dL (12.0-16.0); LYMPHOCYTES # (AUTO) 1.1 K/uL (1.0-5.5); LYMPHOCYTES % (AUTO) 10.6 % (20.5-51.5); MEAN CORPUSCULAR HEMOGLOBIN 28 pg (27-31); MEAN CORPUSCULAR HGB CONC 33 % (32-36); MEAN CORPUSCULAR VOLUME 84 fL (79.0-98.0); MONOCYTES # (AUTO) 0.6 K/uL (0.0-1.0); MONOCYTES % (AUTO) 5.5 % (1.7-9.3); NEUTROPHILS # (AUTO) 8.6 K/uL (1.8-7.7); NEUTROPHILS % (AUTO) 83.7 % (40.0-70.0); PLATELET COUNT (AUTO) 291 K/uL (130-430); RED BLOOD CELL COUNT(AUTO) 4.19 MIL/uL (4.2-6.2); RED CELL DISTRIBUTION WIDTH 16.3 % (9.0-15.0); WHITE BLOOD COUNT (AUTO) 10.2 K/uL (4.8-10.8)
[2019-11-15 08:00] VITALS: BP_SYST 96
[2019-11-15 08:22] LABS: ALANINE AMINOTRANSFERASE 18 U/L (12-78); ANION GAP 5 (5-15); ASPARTATE AMINOTRANSFERASE 11 U/L (10-37); CALCIUM 8.5 mg/dL (8.4-11.0); CHLORIDE 97 mmol/L (98-107); CREATININE 0.84 mg/dL (0.55-1.30); GLUCOSE 155 mg/dL (70-99); POTASSIUM 4.5 mmol/L (3.5-5.1); SODIUM SERUM 137 mmol/L (136-145); TOTAL BILIRUBIN 0.4 mg/dL (0.0-1.0); UREA NITROGEN, BLOOD 24 mg/dL (8-21)
[2019-11-15] MEDS: FUROSEMIDE 40 MG/4 ML VIAL IVP SCH ×2 (09:00→20:34)
[2019-11-15] MEDS: CARVEDILOL 6.25 MG TABLET (COREG) PO SCH ×2 (09:00→20:35)
[2019-11-15] MEDS: AMIODARONE HCL 200 MG TABLET PO SCH (09:00)
[2019-11-15] MEDS: SPIRONOLACTONE 25 MG TABLET (ALDACTONE) PO SCH (09:00)
[2019-11-15] MEDS: CLOPIDOGREL BISULFATE 75 MG TABLET PO SCH (09:39)
[2019-11-15] MEDS: PREDNISONE 20 MG TABLET PO SCH ×2 (09:39→20:34)
[2019-11-15] MEDS: ATORVASTATIN 20 MG TABLET PO SCH (09:39)
[2019-11-15 09:52] LABS: PROTHROMBIN TIME 44.2 SECS (9.5-12.5)
[2019-11-15 09:54] LABS: INR 4.5 (0.8-1.2)
[2019-11-15 11:45] VITALS: BP_SYST 123
[2019-11-15] MEDS: cefTRIAXone 1 GM in D5W 50 ML IV SCH (11:51)
[2019-11-15 15:26] VITALS: BP_SYST 117
[2019-11-15] MEDS: ONDANSETRON HCL 4 MG/2 ML VIAL IVP PRN (18:59)
[2019-11-15 20:00] VITALS: BP_SYST 101
[2019-11-15] MEDS: ZOLPIDEM TARTRATE 5 MG TABLET PO PRN (22:04)
[2019-11-16] VITALS: BP_SYST 150
[2019-11-16] MEDS: IPRATROPIUM BROM 0.5 MG/2.5 ML VIAL.NEB (ATROVENT) INH SCH ×2 (01:00→07:27)
[2019-11-16] MEDS: ALBUTEROL SULFATE 0.083% 2.5 MG/3 ML VIAL.NEB INH SCH ×2 (01:00→07:27)
[2019-11-16] MEDS: BUDESONIDE 0.5 MG/2 ML AMPUL.NEB INH SCH (07:28)
[2019-11-16 08:28] LABS: SODIUM SERUM 136 mmol/L (136-145)
[2019-11-16 08:29] LABS: ANION GAP 4 (5-15); CALCIUM 8.3 mg/dL (8.4-11.0); CHLORIDE 100 mmol/L (98-107); CREATININE 0.86 mg/dL (0.55-1.30); GLUCOSE 144 mg/dL (70-99); POTASSIUM 4.7 mmol/L (3.5-5.1); UREA NITROGEN, BLOOD 24 mg/dL (8-21)
[2019-11-16 08:32] LABS: INR 2.3 (0.8-1.2); PROTHROMBIN TIME 22.6 SECS (9.5-12.5)
[2019-11-16] MEDS: CARVEDILOL 6.25 MG TABLET (COREG) PO SCH (09:00)
[2019-11-16] MEDS: SPIRONOLACTONE 25 MG TABLET (ALDACTONE) PO SCH (09:00)
[2019-11-16] MEDS: FUROSEMIDE 40 MG/4 ML VIAL IVP SCH (09:00)
[2019-11-16] MEDS: AMIODARONE HCL 200 MG TABLET PO SCH (09:27)
[2019-11-16] MEDS: CLOPIDOGREL BISULFATE 75 MG TABLET PO SCH (09:28)
[2019-11-16] MEDS: ATORVASTATIN 20 MG TABLET PO SCH (09:28)
[2019-11-16] MEDS: PREDNISONE 20 MG TABLET PO SCH (09:29)
[2019-11-16] MEDS ORDERED: PRED50TA PO (10:16)
[2019-11-16 13:41] VITALS: BP_SYST 98
[2019-11-16 14:41] VITALS: BP_SYST 150
[2019-11-16] MEDS ORDERED: WARFARIN SODIUM 2 MG TABLET PO SCH (18:00)
== END 2019-11-16 14:20 | disposition home or self-care (01) | DRG 291 ==
LOC: SED 06:47 → STU 08:40
PROVIDERS: ADMIT Internal Medicine Hospice and Palliative Medicine; ATTEND Internal Medicine Hospice and Palliative Medicine
DX: I11.0 Hypertensive heart disease with heart failure (principal); J96.01 Acute respiratory failure with hypoxia; J18.9 Pneumonia, unspecified organism; I50.21 Acute systolic (congestive) heart failure; J44.1 Chronic obstructive pulmonary disease with (acute) exacerbation; J44.0 Chronic obstructive pulmonary disease with (acute) lower respiratory infection; J91.8 Pleural effusion in other conditions classified elsewhere; I25.10 Atherosclerotic heart disease of native coronary artery without angina pectoris; M19.90 Unspecified osteoarthritis, unspecified site; Z96.651 Presence of right artificial knee joint; I48.0 Paroxysmal atrial fibrillation; I25.5 Ischemic cardiomyopathy; I51.3 Intracardiac thrombosis, not elsewhere classified; T45.515A Adverse effect of anticoagulants, initial encounter; F17.210 Nicotine dependence, cigarettes, uncomplicated; Z79.899 Other long term (current) drug therapy; Z98.61 Coronary angioplasty status; I25.2 Old myocardial infarction; Y92.89 Other specified places as the place of occurrence of the external cause
CPT/HCPCS: 36415; 36600; 71045; 71250-TC; 80048; 80053; 81003; 82803-TC; 83605; 83690-TC; 83880; 84484; 85025; 85610-TC; 85730-TC; 87040-TC; 87081; 93005; 93970; 94640; 94760; 96365; 96375; 97116-GP; 97530-GP; 99285; G0378; J0456; J0696; J1030; J1650; J1940; J1956; J2405; J2930; J7050; J7060; J7512; J7613; J7620; J7626; Q0144

== ENCOUNTER 2019-12-08 10:18 | Emergency (ER) | payer OTHER ==
[~2019-12-08] VITALS: Ht 165.1 cm; Wt 95.3 kg
[~2019-12-08 10:18] MED LIST changes: -ALBU2TAB4 PO; +ALBU8.5H8 INH; +ONDA4TAB5 PO; +PRED50TA PO; +PRO20 PO; -WARF4TAB2 PO
[2019-12-08 10:22] VITALS: BP_SYST 118
--- NOTE | 2019-12-08 10:28 | NUR ---
Patient triaged and placed in waiting room. VSS and patient appears in no acute distress at this time. Accompanied by family, awaiting available bed, and MD notified of need for MSE.
--- NOTE | 2019-12-08 10:36 | NUR ---
Patient to ER bed 07 for evaluation. Side rails up. Report given to Sree KING.
--- NOTE | 2019-12-08 10:43 | NUR ---
Patient AAOx4 c/o left elbow pain s/p trip and fall yesterday afternoon. Patient reports falling on face on the concrete, denies KO. Patient reports history of HTN, hyperlipidemia, cholecystectomy, and right knee replacement. Patient has allergy to codeine. Patient reports pain 10/10. Patient unable to extend elbow without assistance. Respirations even and unlabored, no signs or symptoms of acute distress noted.
--- NOTE | 2019-12-08 10:44 | NUR ---
Patient transported to radiology via wheelchair, accompanied by radiology transporter.
--- NOTE | 2019-12-08 10:54 | NUR ---
Returns to ER department from radiology. Placed on epic ambulatory analyst, blood pressure machine and pulse oximeter.
--- NOTE | 2019-12-08 10:55 | NUR ---
AUSTIN Banuelos at bedside examining patient.
[2019-12-08] MEDS ORDERED: ACETAMINOPHEN 500 MG TABLET PO ONE (11:00)
[2019-12-08 11:43] LABS: BASOPHILS # (AUTO) 0.1 K/uL (0.0-0.2); BASOPHILS % (AUTO) 0.8 % (0.0-2.0); EOSINOPHILS # (AUTO) 0.1 K/uL (0.0-0.4); EOSINOPHILS % (AUTO) 0.8 % (0.0-4.0); HEMATOCRIT 39.4 % (36-48); HEMOGLOBIN 13.1 g/dL (12.0-16.0); LYMPHOCYTES # (AUTO) 1.4 K/uL (1.0-5.5); LYMPHOCYTES % (AUTO) 15.7 % (20.5-51.5); MEAN CORPUSCULAR HEMOGLOBIN 27 pg (27-31); MEAN CORPUSCULAR HGB CONC 33 % (32-36); MEAN CORPUSCULAR VOLUME 82 fL (79.0-98.0); MONOCYTES # (AUTO) 0.6 K/uL (0.0-1.0); MONOCYTES % (AUTO) 6.8 % (1.7-9.3); NEUTROPHILS # (AUTO) 6.7 K/uL (1.8-7.7); NEUTROPHILS % (AUTO) 75.9 % (40.0-70.0); PLATELET COUNT (AUTO) 373 K/uL (130-430); RED CELL DISTRIBUTION WIDTH 16.6 % (9.0-15.0); WHITE BLOOD COUNT (AUTO) 8.8 K/uL (4.8-10.8)
[2019-12-08 11:51] LABS: ANION GAP 9 (5-15); CALCIUM 8.1 mg/dL (8.4-11.0); CHLORIDE 94 mmol/L (98-107); CREATININE 0.72 mg/dL (0.55-1.30); GLUCOSE 97 mg/dL (70-99); SODIUM SERUM 134 mmol/L (136-145); UREA NITROGEN, BLOOD 5 mg/dL (8-21)
[2019-12-08 11:56] LABS: POTASSIUM 2.5 mmol/L (3.5-5.1)
--- NOTE | 2019-12-08 11:57 | NUR ---
Potassium 2.5. Dr. Banuelos notified.
[2019-12-08 12:00] LABS: ALANINE AMINOTRANSFERASE 17 U/L (12-78); ALBUMIN 3.3 g/dL (3.4-4.8); ASPARTATE AMINOTRANSFERASE 7 U/L (10-37); TOTAL BILIRUBIN 0.9 mg/dL (0.0-1.0)
[2019-12-08] MEDS ORDERED: POTASSIUM CHLORIDE 20 MEQ TAB.PRT.SR PO ONE (12:00)
[2019-12-08] MEDS ORDERED: HYDROcodone/ACETAMIN 5-325 MG TAB (NORCO/ VICODIN) PO ONE (12:15)
--- NOTE | 2019-12-08 12:49 | NUR ---
Report given to Jacqueline KING using SBAR approach for continuation of care.
[2019-12-08 13:09] VITALS: BP_SYST 118
--- NOTE | 2019-12-08 13:09 | NUR ---
Patient given written and verbal discharge instructions and verbalizes understanding. ER MD discussed with patient the results and treatment provided. Patient in stable condition. ID arm band removed. Rx of Sunspot given. Patient educated on pain management and to follow up with PMD. Pain Scale 0/10. Opportunity for questions provided and answered. Medication side effect fact sheet provided.
== END 2019-12-08 13:09 | disposition home or self-care (01) ==
LOC: SED 10:18
DX: S52.125A Nondisplaced fracture of head of left radius, initial encounter for closed fracture (principal); E87.6 Hypokalemia; I11.0 Hypertensive heart disease with heart failure; I50.9 Heart failure, unspecified; E11.9 Type 2 diabetes mellitus without complications; J44.9 Chronic obstructive pulmonary disease, unspecified; F17.210 Nicotine dependence, cigarettes, uncomplicated; Z88.5 Allergy status to narcotic agent; Z79.899 Other long term (current) drug therapy; Z71.6 Tobacco abuse counseling; W01.0XXA Fall on same level from slipping, tripping and stumbling without subsequent striking against object, initial encounter; Y93.89 Activity, other specified; Y92.89 Other specified places as the place of occurrence of the external cause; Y99.8 Other external cause status
CPT/HCPCS: 36415; 70450-TC; 80053; 84484; 85025; 93005; 99284

== ENCOUNTER 2020-02-11 18:31 | Inpatient (IN) | payer OTHER ==
[~2020-02-11] VITALS: Ht 165.1 cm; Wt 103.1 kg
[2020-02-11 18:56] VITALS: BP_SYST 101
[2020-02-11] MEDS ORDERED: NACL 0.9% 1,000 ML IV ONE ×3 (20:00→23:30)
[2020-02-11 20:23] LABS: BASOPHILS # (AUTO) 0.1 K/uL (0.0-0.2); BASOPHILS % (AUTO) 0.9 % (0.0-2.0); EOSINOPHILS % (AUTO) 0.2 % (0.0-4.0); HEMATOCRIT 40.3 % (36-48); HEMOGLOBIN 13.4 g/dL (12.0-16.0); LYMPHOCYTES # (AUTO) 1.3 K/uL (1.0-5.5); LYMPHOCYTES % (AUTO) 20.1 % (20.5-51.5); MEAN CORPUSCULAR HEMOGLOBIN 27 pg (27-31); MEAN CORPUSCULAR HGB CONC 33 % (32-36); MEAN CORPUSCULAR VOLUME 82 fL (79.0-98.0); MONOCYTES # (AUTO) 0.5 K/uL (0.0-1.0); MONOCYTES % (AUTO) 8.3 % (1.7-9.3); NEUTROPHILS # (AUTO) 4.6 K/uL (1.8-7.7); NEUTROPHILS % (AUTO) 70.5 % (40.0-70.0); PLATELET COUNT (AUTO) 351 K/uL (130-430); RED BLOOD CELL COUNT(AUTO) 4.92 MIL/uL (4.2-6.2); RED CELL DISTRIBUTION WIDTH 17.1 % (9.0-15.0); WHITE BLOOD COUNT (AUTO) 6.6 K/uL (4.8-10.8)
[2020-02-11 21:06] LABS: INR 1.2 (0.8-1.2); PROTHROMBIN TIME 11.8 SECS (9.5-12.5)
[2020-02-11 21:26] LABS: ANION GAP 9 (5-15); CHLORIDE 88 mmol/L (98-107); CREATININE 1.03 mg/dL (0.55-1.30); GLUCOSE 164 mg/dL (70-99); SODIUM SERUM 131 mmol/L (136-145); UREA NITROGEN, BLOOD 10 mg/dL (8-21)
[2020-02-11 21:43] LABS: ALANINE AMINOTRANSFERASE 13 U/L (12-78); ALBUMIN 2.4 g/dL (3.4-4.8); ASPARTATE AMINOTRANSFERASE 22 U/L (10-37); LIPASE 120 U/L (73-393)
[2020-02-11 21:45] LABS: POTASSIUM 2.4 mmol/L (3.5-5.1)
[2020-02-11] MEDS ORDERED: KCL 20 mEq in 100 mL (PREMIX) 100 ML IV ONE (21:45)
[2020-02-11 21:49] LABS: BILIRUBIN,URINE NEGATIVE (NEGATIVE); CLARITY/URINE CLOUDY (CLEAR); COLOR,URINE YELLOW (YELLOW); GLUCOSE,URINE NEGATIVE (NEGATIVE); KETONES,URINE NEGATIVE (NEGATIVE); LEUKOCYTE ESTERASE ,URINE 2+ (NEGATIVE); NITRITE, URINE POSITIVE (NEGATIVE); PROTEIN URINE NEGATIVE (NEGATIVE)
[2020-02-11 21:53] LABS: BLOOD, URINE TRACE (NEGATIVE)
[2020-02-11 22:30] LABS: BACTERIA,URINE MANY /HPF (None Seen); MUCUS,URINE None Seen /LPF (None Seen); RBC,URINE 0-3 /HPF (0-3); WBC,URINE 50-80 /HPF (0-3)
[2020-02-11] MEDS ORDERED: ONDANSETRON HCL 4 MG/2 ML VIAL IVP ONE (22:30)
[2020-02-11] MEDS ORDERED: cefTRIAXone 1 GM IVPB PREMIX 50 ML IV ONE (23:45)
[2020-02-12] VITALS (24 sets, daily range): BP systolic 90–132
[2020-02-12] MEDS ORDERED: VANCOMYCIN HCL 1,000 MG in NS 250 ML IV ONE ×2
[2020-02-12] MEDS ORDERED: NOREPINEPHRINE BITARTRATE 4 MG in NS 246 ML IV ONE ×2
[2020-02-12] MEDS ORDERED: NOREPINEPHRINE 4 MG/4 ML VIAL IV ONE ×3 (00:33→18:52)
[2020-02-12] MEDS ORDERED: VANCOMYCIN HCL 1000 MG/VIAL IV ONE (00:54)
[2020-02-12] MEDS ORDERED: KCL 20 mEq in 100 mL (PREMIX) 100 ML IV ONE ×3 (01:45→09:00)
[2020-02-12] MEDS ORDERED: POTASSIUM CHLORIDE 20 MEQ TAB.PRT.SR PO ONE ×2 (01:45→07:00)
[2020-02-12] MEDS ORDERED: NACL 0.9% 1,000 ML IV SCH (01:45)
[2020-02-12] MEDS ORDERED: PIPERACILLIN/TAZO 3.375/DEX-IS 50 ML IV SCH (01:45)
[2020-02-12] MEDS ORDERED: ONDANSETRON HCL 4 MG/2 ML VIAL IVP PRN (01:45)
[2020-02-12] MEDS ORDERED: ALBUTEROL SULFATE 0.083% 2.5 MG/3 ML VIAL.NEB INH PRN (01:45)
[2020-02-12] MEDS ORDERED: ALBUMIN HUMAN 5% 250 ML IV ONE (04:15)
[2020-02-12] MEDS ORDERED: PIPERACILLIN/TAZOBACTAM 3.375 GM/VIAL (ZOSYN) IV ONE (04:35)
[2020-02-12 05:47] LABS: BASOPHILS # (AUTO) 0.1 K/uL (0.0-0.2); BASOPHILS % (AUTO) 0.6 % (0.0-2.0); EOSINOPHILS % (AUTO) 0.3 % (0.0-4.0); HEMATOCRIT 40.6 % (36-48); HEMOGLOBIN 13.3 g/dL (12.0-16.0); LYMPHOCYTES # (AUTO) 3.9 K/uL (1.0-5.5); LYMPHOCYTES % (AUTO) 25.6 % (20.5-51.5); MEAN CORPUSCULAR HEMOGLOBIN 27 pg (27-31); MEAN CORPUSCULAR HGB CONC 33 % (32-36); MEAN CORPUSCULAR VOLUME 83 fL (79.0-98.0); MONOCYTES # (AUTO) 1.4 K/uL (0.0-1.0); NEUTROPHILS # (AUTO) 9.8 K/uL (1.8-7.7); NEUTROPHILS % (AUTO) 64.5 % (40.0-70.0); PLATELET COUNT (AUTO) 402 K/uL (130-430); RED BLOOD CELL COUNT(AUTO) 4.87 MIL/uL (4.2-6.2); RED CELL DISTRIBUTION WIDTH 16.9 % (9.0-15.0); WHITE BLOOD COUNT (AUTO) 15.3 K/uL (4.8-10.8)
[2020-02-12 06:15] LABS: ALANINE AMINOTRANSFERASE 15 U/L (12-78); ALBUMIN 2.4 g/dL (3.4-4.8); ANION GAP 9 (5-15); ASPARTATE AMINOTRANSFERASE 17 U/L (10-37); CALCIUM 7.2 mg/dL (8.4-11.0); CHLORIDE 94 mmol/L (98-107); GLUCOSE 124 mg/dL (70-99); SODIUM SERUM 133 mmol/L (136-145); TOTAL BILIRUBIN 0.8 mg/dL (0.0-1.0); UREA NITROGEN, BLOOD 8 mg/dL (8-21)
[2020-02-12 06:35] LABS: POTASSIUM 2.1 mmol/L (3.5-5.1)
[2020-02-12] MEDS ORDERED: MAGNESIUM SULFATE 50 ML IV ONE (07:00)
[2020-02-12] MEDS ORDERED: DIATR MEGLU/DIATRIZ SOD 30 ML SOLUTION PO ONE (09:07)
[2020-02-12] MEDS: INSULIN REGULAR, HUMAN 100 UNITS/ML, 10 ML VIAL (humuLIN R) SUBCUT PRN (10:23)
[2020-02-12] MEDS: NOREPINEPHRINE BITARTRATE 4 MG in D5W 246 ML IV PRN ×2 (10:41→18:56)
[2020-02-12] MEDS: IPRATROPIUM/ALBUTEROL SULFATE 3 ML AMPUL.NEB (DUONEB) INH SCH ×4 (11:00→23:00)
[2020-02-12] MEDS ORDERED: IOHEXOL 100 ML IV ONE (11:16)
[2020-02-12] MEDS: PIPERACILLIN/TAZO 3.375/DEX-IS 50 ML IV SCH ×2 (13:39→17:44)
[2020-02-12 14:43] LABS: ANION GAP 10 (5-15); CALCIUM 7.4 mg/dL (8.4-11.0); CHLORIDE 96 mmol/L (98-107); CREATININE 0.89 mg/dL (0.55-1.30); GLUCOSE 140 mg/dL (70-99); SODIUM SERUM 133 mmol/L (136-145); UREA NITROGEN, BLOOD 7 mg/dL (8-21)
[2020-02-12 14:51] LABS: POTASSIUM 2.5 mmol/L (3.5-5.1)
[2020-02-12] MEDS: NACL 0.9% 1,000 ML IV SCH ×3 (16:07→20:55)
[2020-02-12] MEDS ORDERED: POTASSIUM CHLORIDE 40 MEQ in NS 250 ML IV ONE (20:00)
[2020-02-12] MEDS ORDERED: KCL 40 mEq in 100 mL (PREMIX) 0 ML IV ONE (20:53)
[2020-02-13] VITALS (24 sets, daily range): BP systolic 88–131
[2020-02-13] MEDS: PIPERACILLIN/TAZO 3.375/DEX-IS 50 ML IV SCH ×4 (01:21→17:06)
[2020-02-13] MEDS: NACL 0.9% 1,000 ML IV SCH ×2 (01:21→10:00)
[2020-02-13] MEDS: IPRATROPIUM/ALBUTEROL SULFATE 3 ML AMPUL.NEB (DUONEB) INH SCH ×6 (03:00→23:00)
[2020-02-13] MEDS ORDERED: NOREPINEPHRINE 4 MG/4 ML VIAL IV ONE (06:25)
[2020-02-13 06:27] LABS: BASOPHILS # (AUTO) 0.1 K/uL (0.0-0.2); BASOPHILS % (AUTO) 0.6 % (0.0-2.0); EOSINOPHILS # (AUTO) 0.1 K/uL (0.0-0.4); EOSINOPHILS % (AUTO) 0.6 % (0.0-4.0); HEMATOCRIT 35.7 % (36-48); HEMOGLOBIN 11.6 g/dL (12.0-16.0); LYMPHOCYTES # (AUTO) 2.1 K/uL (1.0-5.5); LYMPHOCYTES % (AUTO) 18.4 % (20.5-51.5); MEAN CORPUSCULAR HEMOGLOBIN 27 pg (27-31); MEAN CORPUSCULAR HGB CONC 32 % (32-36); MEAN CORPUSCULAR VOLUME 83 fL (79.0-98.0); MONOCYTES # (AUTO) 0.7 K/uL (0.0-1.0); MONOCYTES % (AUTO) 6.3 % (1.7-9.3); NEUTROPHILS # (AUTO) 8.3 K/uL (1.8-7.7); NEUTROPHILS % (AUTO) 74.1 % (40.0-70.0); PLATELET COUNT (AUTO) 332 K/uL (130-430); RED BLOOD CELL COUNT(AUTO) 4.31 MIL/uL (4.2-6.2); WHITE BLOOD COUNT (AUTO) 11.2 K/uL (4.8-10.8)
[2020-02-13] MEDS: NOREPINEPHRINE BITARTRATE 4 MG in D5W 246 ML IV PRN ×2 (06:35→17:40)
[2020-02-13 06:56] LABS: ALANINE AMINOTRANSFERASE 14 U/L (12-78); ALBUMIN 2.2 g/dL (3.4-4.8); ANION GAP 7 (5-15); ASPARTATE AMINOTRANSFERASE 10 U/L (10-37); CALCIUM 7.1 mg/dL (8.4-11.0); CHLORIDE 101 mmol/L (98-107); GLUCOSE 118 mg/dL (70-99); SODIUM SERUM 134 mmol/L (136-145); TOTAL BILIRUBIN 0.5 mg/dL (0.0-1.0); UREA NITROGEN, BLOOD 5 mg/dL (8-21)
[2020-02-13 07:14] LABS: POTASSIUM 2.9 mmol/L (3.5-5.1)
[2020-02-13] MEDS ORDERED: POTASSIUM CHLORIDE 40 MEQ in NS 250 ML IV ONE (09:15)
[2020-02-13] MEDS ORDERED: MAGNESIUM SULFATE 50 ML IV ONE (09:45)
[2020-02-13] MEDS ORDERED: POTASSIUM CHLORIDE 60 MEQ in NS 500 ML IV ONE (16:00)
[2020-02-13] MEDS: INSULIN REGULAR, HUMAN 100 UNITS/ML, 10 ML VIAL (humuLIN R) SUBCUT PRN (21:11)
[2020-02-14] VITALS (24 sets, daily range): BP systolic 80–116
[2020-02-14] MEDS: PIPERACILLIN/TAZO 3.375/DEX-IS 50 ML IV SCH ×4 (00:29→17:18)
[2020-02-14] MEDS: NOREPINEPHRINE BITARTRATE 4 MG in D5W 246 ML IV PRN ×2 (02:04→11:32)
[2020-02-14] MEDS: IPRATROPIUM/ALBUTEROL SULFATE 3 ML AMPUL.NEB (DUONEB) INH SCH ×6 (03:00→23:00)
[2020-02-14] MEDS: NACL 0.9% 1,000 ML IV SCH (05:28)
[2020-02-14 05:33] LABS: BASOPHILS # (AUTO) 0.3 K/uL (0.0-0.2); BASOPHILS % (AUTO) 2.2 % (0.0-2.0); EOSINOPHILS # (AUTO) 0.1 K/uL (0.0-0.4); EOSINOPHILS % (AUTO) 0.6 % (0.0-4.0); HEMATOCRIT 33.7 % (36-48); HEMOGLOBIN 10.9 g/dL (12.0-16.0); LYMPHOCYTES # (AUTO) 1.8 K/uL (1.0-5.5); MEAN CORPUSCULAR HEMOGLOBIN 27 pg (27-31); MEAN CORPUSCULAR HGB CONC 32 % (32-36); MEAN CORPUSCULAR VOLUME 84 fL (79.0-98.0); MONOCYTES # (AUTO) 1.2 K/uL (0.0-1.0); MONOCYTES % (AUTO) 8.6 % (1.7-9.3); NEUTROPHILS # (AUTO) 10.4 K/uL (1.8-7.7); NEUTROPHILS % (AUTO) 75.6 % (40.0-70.0); PLATELET COUNT (AUTO) 335 K/uL (130-430); RED BLOOD CELL COUNT(AUTO) 4.04 MIL/uL (4.2-6.2); RED CELL DISTRIBUTION WIDTH 17.7 % (9.0-15.0); WHITE BLOOD COUNT (AUTO) 13.7 K/uL (4.8-10.8)
[2020-02-14 05:50] LABS: ALANINE AMINOTRANSFERASE 14 U/L (12-78); ANION GAP 8 (5-15); ASPARTATE AMINOTRANSFERASE 12 U/L (10-37); CALCIUM 7.2 mg/dL (8.4-11.0); CHLORIDE 100 mmol/L (98-107); CREATININE 0.79 mg/dL (0.55-1.30); GLUCOSE 124 mg/dL (70-99); POTASSIUM 3.6 mmol/L (3.5-5.1); SODIUM SERUM 134 mmol/L (136-145); TOTAL BILIRUBIN 0.5 mg/dL (0.0-1.0); UREA NITROGEN, BLOOD 4 mg/dL (8-21)
[2020-02-14] MEDS ORDERED: HYDROCORTISONE SOD SUCC 100 MG/2 ML VIAL IVP ONE (09:15)
[2020-02-14] MEDS ORDERED: ALBUMIN HUMAN 5% 250 ML IV ONE (09:30)
[2020-02-14] MEDS: INSULIN REGULAR, HUMAN 100 UNITS/ML, 10 ML VIAL (humuLIN R) SUBCUT PRN ×2 (11:32→21:38)
[2020-02-14] MEDS ORDERED: TEMAZEPAM 7.5 MG CAPSULE PO PRN (21:15)
[2020-02-14] MEDS: HYDROCORTISONE SOD SUCC 100 MG/2 ML VIAL IVP SCH (21:36)
[2020-02-15] VITALS (24 sets, daily range): BP systolic 86–136
[2020-02-15] MEDS: PIPERACILLIN/TAZO 3.375/DEX-IS 50 ML IV SCH ×4 (00:16→17:18)
[2020-02-15] MEDS: NACL 0.9% 1,000 ML IV SCH ×2 (00:16→20:59)
[2020-02-15] MEDS: IPRATROPIUM/ALBUTEROL SULFATE 3 ML AMPUL.NEB (DUONEB) INH SCH ×6 (03:00→23:00)
[2020-02-15 05:59] LABS: BASOPHILS % (AUTO) 0.4 % (0.0-2.0); EOSINOPHILS % (AUTO) 0.1 % (0.0-4.0); HEMATOCRIT 31.6 % (36-48); HEMOGLOBIN 10.5 g/dL (12.0-16.0); LYMPHOCYTES # (AUTO) 0.9 K/uL (1.0-5.5); LYMPHOCYTES % (AUTO) 10.8 % (20.5-51.5); MEAN CORPUSCULAR HEMOGLOBIN 27 pg (27-31); MEAN CORPUSCULAR HGB CONC 33 % (32-36); MEAN CORPUSCULAR VOLUME 82 fL (79.0-98.0); MONOCYTES # (AUTO) 0.3 K/uL (0.0-1.0); MONOCYTES % (AUTO) 3.9 % (1.7-9.3); NEUTROPHILS # (AUTO) 7.1 K/uL (1.8-7.7); NEUTROPHILS % (AUTO) 84.8 % (40.0-70.0); PLATELET COUNT (AUTO) 301 K/uL (130-430); RED BLOOD CELL COUNT(AUTO) 3.84 MIL/uL (4.2-6.2); WHITE BLOOD COUNT (AUTO) 8.3 K/uL (4.8-10.8)
[2020-02-15] MEDS ORDERED: PROPOFOL DRIP 100 ML IV PRN (06:00)
[2020-02-15 06:20] LABS: ALANINE AMINOTRANSFERASE 14 U/L (12-78); ALBUMIN 2.2 g/dL (3.4-4.8); ANION GAP 10 (5-15); ASPARTATE AMINOTRANSFERASE 13 U/L (10-37); C-REACTIVE PROTEIN QUANT 6.1 mg/dL (0-0.5); CALCIUM 7.6 mg/dL (8.4-11.0); CHLORIDE 99 mmol/L (98-107); CREATININE 0.69 mg/dL (0.55-1.30); GLUCOSE 177 mg/dL (70-99); POTASSIUM 3.8 mmol/L (3.5-5.1); SODIUM SERUM 131 mmol/L (136-145); TOTAL BILIRUBIN 0.4 mg/dL (0.0-1.0); UREA NITROGEN, BLOOD 4 mg/dL (8-21)
[2020-02-15] MEDS: HYDROCORTISONE SOD SUCC 100 MG/2 ML VIAL IVP SCH ×3 (06:35→21:01)
[2020-02-15 09:34] LABS: ERYTHROCYTE SEDIMENTATION RATE 14 MM/HR (0-20)
[2020-02-15] MEDS: INSULIN REGULAR, HUMAN 100 UNITS/ML, 10 ML VIAL (humuLIN R) SUBCUT PRN ×2 (11:49→17:30)
[2020-02-16] VITALS (20 sets, daily range): BP systolic 107–124
[2020-02-16] MEDS: IPRATROPIUM/ALBUTEROL SULFATE 3 ML AMPUL.NEB (DUONEB) INH SCH ×5 (03:00→23:00)
[2020-02-16] MEDS: PIPERACILLIN/TAZO 3.375/DEX-IS 50 ML IV SCH ×5 (04:31→23:54)
[2020-02-16] MEDS: HYDROCORTISONE SOD SUCC 100 MG/2 ML VIAL IVP SCH ×3 (05:35→22:09)
[2020-02-16] MEDS: NACL 0.9% 1,000 ML IV SCH (17:32)
[2020-02-17 01:51] VITALS: BP_SYST 118
[2020-02-17] MEDS: IPRATROPIUM/ALBUTEROL SULFATE 3 ML AMPUL.NEB (DUONEB) INH SCH (03:00)
[2020-02-17] MEDS: HYDROCORTISONE SOD SUCC 100 MG/2 ML VIAL IVP SCH ×2 (06:14→13:33)
[2020-02-17] MEDS: PIPERACILLIN/TAZO 3.375/DEX-IS 50 ML IV SCH ×3 (06:14→17:27)
[2020-02-17] MEDS: INSULIN REGULAR, HUMAN 100 UNITS/ML, 10 ML VIAL (humuLIN R) SUBCUT PRN (06:19)
[2020-02-17 07:56] VITALS: BP_SYST 112
[2020-02-17] MEDS ORDERED: CEPH-568 PO (10:27)
[2020-02-17] MEDS ORDERED: FLU VACC TS2019(65UP)/MF59C/PF 45 MCG/0.5 ML SYRINGE I.M. PRN (11:00)
[2020-02-17] MEDS: NACL 0.9% 1,000 ML IV SCH (12:44)
[2020-02-17 13:36] VITALS: BP_SYST 110
[2020-02-17 16:26] VITALS: BP_SYST 118
== END 2020-02-17 17:55 | disposition home or self-care (01) | DRG 871 ==
LOC: SED 18:31 → SIC 02-12 00:32 → STU 02-16 18:11
PROVIDERS: ADMIT Internal Medicine; ATTEND Internal Medicine
PROC: 05HY33Z Insertion of Infusion Device into Upper Vein, Percutaneous Approach (ICD-10-PCS; 2020-02-12)
PROC: B54MZZZ Ultrasonography of Right Upper Extremity Veins (ICD-10-PCS; 2020-02-12)
PROC: 05HY33Z Insertion of Infusion Device into Upper Vein, Percutaneous Approach (ICD-10-PCS; principal; 2020-02-16)
PROC: B54MZZZ Ultrasonography of Right Upper Extremity Veins (ICD-10-PCS; 2020-02-16)
DX: A41.9 Sepsis, unspecified organism (principal); J96.01 Acute respiratory failure with hypoxia; R65.21 Severe sepsis with septic shock; N39.0 Urinary tract infection, site not specified; E46 Unspecified protein-calorie malnutrition; J44.9 Chronic obstructive pulmonary disease, unspecified; K52.9 Noninfective gastroenteritis and colitis, unspecified; I25.5 Ischemic cardiomyopathy; I25.10 Atherosclerotic heart disease of native coronary artery without angina pectoris; R26.2 Difficulty in walking, not elsewhere classified; I11.0 Hypertensive heart disease with heart failure; I50.9 Heart failure, unspecified; E11.9 Type 2 diabetes mellitus without complications; F17.200 Nicotine dependence, unspecified, uncomplicated; I25.2 Old myocardial infarction; Z88.5 Allergy status to narcotic agent; Z79.01 Long term (current) use of anticoagulants; Z79.899 Other long term (current) drug therapy; Z91.14 Patient's other noncompliance with medication regimen; Z68.37 Body mass index [BMI] 37.0-37.9, adult; Z83.3 Family history of diabetes mellitus
CPT/HCPCS: 36415; 70450-TC; 71045; 71260-TC; 80048; 80053; 81000-TC; 82962; 83605; 83690-TC; 83735-TC; 83880; 84443-TC; 84484; 85025; 85610-TC; 85651-TC; 86140; 87040-TC; 87081; 87086; 87186-TC; 93005; 96361; 96365; 96367; 96368; 99291; C1751; G0378; J0696; J1720; J1815; J2405; J2543; J3370; J3475; J3480; J7030; J7040; J7050; J7060; P9041; Q9964; Q9967

== ENCOUNTER 2020-02-25 07:14 | Observation (INO) | payer OTHER ==
[~2020-02-25] VITALS: Ht 165.1 cm; Wt 90.3 kg
[~2020-02-25 07:14] MED LIST changes: -ALBU8.5H8 INH; -BUDE6HFA INH; +CEPH-568 PO; -ONDA4TAB5 PO; -PRED50TA PO; -PRO20 PO
[2020-02-25 07:21] VITALS: BP_SYST 120
[2020-02-25] MEDS ORDERED: PIPERACILLIN/TAZO 3.38 GM in NS 50 ML IV ONE (08:45)
[2020-02-25 09:07] LABS: BASOPHILS % (AUTO) 0.5 % (0.0-2.0); EOSINOPHILS % (AUTO) 0.4 % (0.0-4.0); HEMOGLOBIN 12.1 g/dL (12.0-16.0); LYMPHOCYTES # (AUTO) 1.5 K/uL (1.0-5.5); LYMPHOCYTES % (AUTO) 17.1 % (20.5-51.5); MEAN CORPUSCULAR HEMOGLOBIN 27 pg (27-31); MEAN CORPUSCULAR HGB CONC 33 % (32-36); MEAN CORPUSCULAR VOLUME 84 fL (79.0-98.0); MONOCYTES # (AUTO) 0.5 K/uL (0.0-1.0); MONOCYTES % (AUTO) 5.5 % (1.7-9.3); NEUTROPHILS # (AUTO) 6.7 K/uL (1.8-7.7); NEUTROPHILS % (AUTO) 76.5 % (40.0-70.0); PLATELET COUNT (AUTO) 287 K/uL (130-430); RED BLOOD CELL COUNT(AUTO) 4.43 MIL/uL (4.2-6.2); RED CELL DISTRIBUTION WIDTH 18.5 % (9.0-15.0); WHITE BLOOD COUNT (AUTO) 8.8 K/uL (4.8-10.8)
[2020-02-25] MEDS ORDERED: PIPERACILLIN/TAZOBACTAM 3.375 GM/VIAL (ZOSYN) IV ONE (09:08)
[2020-02-25 09:10] LABS: BILIRUBIN,URINE 1+ (NEGATIVE); BLOOD, URINE NEGATIVE (NEGATIVE); CLARITY/URINE SL CLOUDY (CLEAR); COLOR,URINE YELLOW (YELLOW); GLUCOSE,URINE NEGATIVE (NEGATIVE); KETONES,URINE NEGATIVE (NEGATIVE); LEUKOCYTE ESTERASE ,URINE 1+ (NEGATIVE); NITRITE, URINE NEGATIVE (NEGATIVE); PH,URINE 6.5 (5.0-8.0); PROTEIN URINE NEGATIVE (NEGATIVE)
[2020-02-25 09:20] LABS: ANION GAP 6 (5-15); CALCIUM 7.7 mg/dL (8.4-11.0); CHLORIDE 97 mmol/L (98-107); CREATININE 0.84 mg/dL (0.55-1.30); GLUCOSE 111 mg/dL (70-99); SODIUM SERUM 137 mmol/L (136-145); UREA NITROGEN, BLOOD 6 mg/dL (8-21)
[2020-02-25 09:25] LABS: INR 1.3 (0.8-1.2)
[2020-02-25 09:29] LABS: POTASSIUM 2.4 mmol/L (3.5-5.1)
[2020-02-25] MEDS ORDERED: POTASSIUM CHLORIDE 20 MEQ/PKT PACKET PO ONE ×2 (09:45→23:45)
[2020-02-25] MEDS ORDERED: POTASSIUM CHLORIDE 40 MEQ in NS 250 ML IV ONE (09:45)
[2020-02-25 09:46] LABS: ALANINE AMINOTRANSFERASE 14 U/L (12-78); ASPARTATE AMINOTRANSFERASE 13 U/L (10-37)
[2020-02-25 09:47] LABS: ALBUMIN 2.4 g/dL (3.4-4.8); LIPASE 42 U/L (73-393); PROTHROMBIN TIME 13.3 SECS (9.5-12.5)
[2020-02-25 09:58] LABS: BACTERIA,URINE MODERATE /HPF (None Seen); RBC,URINE 0-3 /HPF (0-3); YEAST,URINE Moderate /HPF (None Seen)
[2020-02-25] MEDS ORDERED: FUROSEMIDE 20 MG TABLET PO ONE (10:00)
[2020-02-25] MEDS ORDERED: ALBUTEROL SULFATE 0.083% 2.5 MG/3 ML VIAL.NEB INH ONE (10:00)
[2020-02-25 11:30] VITALS: BP_SYST 121
[2020-02-25 12:00] VITALS: BP_SYST 105
[2020-02-25] MEDS ORDERED: ONDANSETRON HCL 4 MG/2 ML VIAL IVP PRN (15:45)
[2020-02-25 16:00] VITALS: BP_SYST 110
[2020-02-25] MEDS ORDERED: AMIODARONE HCL 200 MG TABLET PO ONE (16:00)
[2020-02-25] MEDS ORDERED: CLOPIDOGREL BISULFATE 75 MG TABLET PO ONE (16:00)
[2020-02-25] MEDS ORDERED: ATORVASTATIN 20 MG TABLET PO ONE (16:00)
[2020-02-25] MEDS ORDERED: SPIRONOLACTONE 25 MG TABLET (ALDACTONE) PO ONE (16:00)
[2020-02-25] MEDS ORDERED: WARFARIN SODIUM 1 MG TABLET PO SCH (17:00)
[2020-02-25 20:00] VITALS: BP_SYST 101
[2020-02-25] MEDS: CARVEDILOL 6.25 MG TABLET (COREG) PO SCH (21:00)
[2020-02-25 23:16] LABS: ANION GAP 7 (5-15); CALCIUM 7.4 mg/dL (8.4-11.0); CHLORIDE 100 mmol/L (98-107); CREATININE 0.88 mg/dL (0.55-1.30); GLUCOSE 109 mg/dL (70-99); SODIUM SERUM 141 mmol/L (136-145); UREA NITROGEN, BLOOD 7 mg/dL (8-21)
[2020-02-25 23:20] LABS: POTASSIUM 2.6 mmol/L (3.5-5.1)
[2020-02-25] MEDS ORDERED: KCL 20 mEq in 100 mL (PREMIX) 100 ML IV ONE (23:45)
[2020-02-26 00:08] VITALS: BP_SYST 111
[2020-02-26] MEDS ORDERED: KCL 20 mEq in 100 mL (PREMIX) 100 ML IV ONE (03:00)
[2020-02-26] MEDS ORDERED: IPRATROPIUM/ALBUTEROL SULFATE 3 ML AMPUL.NEB (DUONEB) INH ONE (07:00)
[2020-02-26 08:00] VITALS: BP_SYST 129
[2020-02-26 08:12] LABS: BASOPHILS # (AUTO) 0.1 K/uL (0.0-0.2); EOSINOPHILS # (AUTO) 0.1 K/uL (0.0-0.4); EOSINOPHILS % (AUTO) 0.7 % (0.0-4.0); HEMATOCRIT 39.9 % (36-48); HEMOGLOBIN 13.1 g/dL (12.0-16.0); LYMPHOCYTES # (AUTO) 2.2 K/uL (1.0-5.5); LYMPHOCYTES % (AUTO) 22.7 % (20.5-51.5); MEAN CORPUSCULAR HEMOGLOBIN 28 pg (27-31); MEAN CORPUSCULAR HGB CONC 33 % (32-36); MEAN CORPUSCULAR VOLUME 84 fL (79.0-98.0); MONOCYTES # (AUTO) 0.8 K/uL (0.0-1.0); MONOCYTES % (AUTO) 8.1 % (1.7-9.3); NEUTROPHILS # (AUTO) 6.6 K/uL (1.8-7.7); NEUTROPHILS % (AUTO) 67.5 % (40.0-70.0); PLATELET COUNT (AUTO) 273 K/uL (130-430); RED BLOOD CELL COUNT(AUTO) 4.72 MIL/uL (4.2-6.2); RED CELL DISTRIBUTION WIDTH 18.7 % (9.0-15.0); WHITE BLOOD COUNT (AUTO) 9.8 K/uL (4.8-10.8)
[2020-02-26] MEDS ORDERED: AMIODARONE HCL 200 MG TABLET PO SCH (09:00)
[2020-02-26] MEDS ORDERED: CLOPIDOGREL BISULFATE 75 MG TABLET PO SCH (09:00)
[2020-02-26] MEDS ORDERED: FUROSEMIDE 40 MG TABLET PO SCH (09:00)
[2020-02-26] MEDS ORDERED: ATORVASTATIN 20 MG TABLET PO SCH (09:00)
[2020-02-26] MEDS ORDERED: SPIRONOLACTONE 25 MG TABLET (ALDACTONE) PO SCH (09:00)
[2020-02-26] MEDS: CARVEDILOL 6.25 MG TABLET (COREG) PO SCH (09:03)
[2020-02-26 09:08] LABS: INR 1.3 (0.8-1.2); PROTHROMBIN TIME 12.5 SECS (9.5-12.5)
[2020-02-26 09:29] LABS: ALANINE AMINOTRANSFERASE 13 U/L (12-78); ALBUMIN 2.4 g/dL (3.4-4.8); ANION GAP 5 (5-15); ASPARTATE AMINOTRANSFERASE 15 U/L (10-37); CALCIUM 7.9 mg/dL (8.4-11.0); CHLORIDE 99 mmol/L (98-107); CREATININE 0.86 mg/dL (0.55-1.30); GLUCOSE 100 mg/dL (70-99); POTASSIUM 3.3 mmol/L (3.5-5.1); SODIUM SERUM 134 mmol/L (136-145); TOTAL BILIRUBIN 1.1 mg/dL (0.0-1.0); UREA NITROGEN, BLOOD 6 mg/dL (8-21)
[2020-02-26] MEDS ORDERED: POTASSIUM CHLORIDE 20 MEQ TAB.PRT.SR PO ONE (10:45)
[2020-02-26 11:00] VITALS: BP_SYST 115
[2020-02-26 11:30] VITALS: BP_SYST 115
== END 2020-02-26 11:30 | disposition home or self-care (01) ==
LOC: SED 07:14 → STU 10:34
PROVIDERS: ADMIT Internal Medicine Hospice and Palliative Medicine; ATTEND Internal Medicine Hospice and Palliative Medicine
DX: E87.6 Hypokalemia (principal); R11.2 Nausea with vomiting, unspecified; R19.7 Diarrhea, unspecified; J44.9 Chronic obstructive pulmonary disease, unspecified; I11.0 Hypertensive heart disease with heart failure; I50.40 Unspecified combined systolic (congestive) and diastolic (congestive) heart failure; E11.9 Type 2 diabetes mellitus without complications; I25.2 Old myocardial infarction; I25.5 Ischemic cardiomyopathy; I48.0 Paroxysmal atrial fibrillation; M19.90 Unspecified osteoarthritis, unspecified site; F17.210 Nicotine dependence, cigarettes, uncomplicated; Z86.718 Personal history of other venous thrombosis and embolism; Z95.5 Presence of coronary angioplasty implant and graft; Z90.49 Acquired absence of other specified parts of digestive tract; Z79.899 Other long term (current) drug therapy; Z88.5 Allergy status to narcotic agent
CPT/HCPCS: 36415 ×2; 71045; 74176; 80048; 80053 ×2; 81000; 83605; 83690; 83735; 83880; 85025 ×2; 85610 ×2; 87040; 87081; 87086; 93005; 94640 ×2; 96365; 96366; 96367; 99285; G0378 ×2; J2543; J3480 ×2; J7030; J7050; J7613; 96361; 96374

== ENCOUNTER 2020-04-29 20:27 | Emergency (ER) | payer OTHER ==
[~2020-04-29] VITALS: Ht 165.1 cm; Wt 81.6 kg
[~2020-04-29 20:27] MED LIST changes: -CEPH-568 PO
[2020-04-29 20:45] VITALS: BP_SYST 113
[2020-04-29] MEDS ORDERED: MIDO5TAB PO (20:53)
[2020-04-29] MEDS ORDERED: RIVA20TA PO (20:53)
[2020-04-29] MEDS ORDERED: AMI200 PO (20:53)
--- NOTE | 2020-04-29 20:54 | NUR ---
Patient to ER bed 02 to gown for evaluation. Side rails up. Report given to CHRISTINE Irizarry
--- NOTE | 2020-04-29 21:00 | NUR ---
ER Dr. Corey at bedside examining patient.
--- NOTE | 2020-04-29 21:05 | NUR ---
Patient was brought in from home by daughter complaining of facial swelling on upper lip, left and right cheeks, and lower extremity swelling bilaterally on ankles that started today. Patient complains of general weakness and being lethargic. Patient is a&o x4. Patients daughter states she has recently becoming more and more confused but has not been diagnosed. Patient went to urgent care today and IV line on left AC was left in. hx of heart attack, angioplasty, stent, and r. knee replacement. Pt was tested for COVID 19 on 04/05/20 and results were negative.
--- NOTE | 2020-04-29 21:39 | NUR ---
DISCONTINUED IV ACCESS ON LEFT AC PLACED BY URGENT CARE BEFORE PATIENT AMA.
--- NOTE | 2020-04-29 21:42 | NUR ---
Patient does not wish to proceed with medical care recommended by Dr. Corey. Patient given information related to possible complications, up to and including , which could occur as a result of leaving hospital at this time. Patient verbalizes understanding of risks involved leaving against medical advice. Patient has signed AMA form.
== END 2020-04-29 21:42 | disposition left against medical advice (07) ==
LOC: SED 20:27
DX: M79.89 Other specified soft tissue disorders (principal); I11.0 Hypertensive heart disease with heart failure; I50.9 Heart failure, unspecified; J44.9 Chronic obstructive pulmonary disease, unspecified; E11.9 Type 2 diabetes mellitus without complications; Z88.5 Allergy status to narcotic agent; Z53.29 Procedure and treatment not carried out because of patient's decision for other reasons
CPT/HCPCS: 71045; 93005; 99285